=== PATIENT | male | born 1945 | race Caucasian/White ===

== ENCOUNTER 2017-03-28 11:50 | Day surgery (SDC) | payer MEDICARE, OTHER ==
[2017-03-28] VITALS (11 sets, daily range): BP systolic 133–180; BP diastolic 66–90; PULSE 60–87; TEMP 97.1–97.6
[~2017-03-28] VITALS: Ht 177.8 cm; Wt 99.3 kg
[~2017-03-28 11:50] MED LIST: ALEVE 220MG220 MG PO; ASPIRIN 81M81 MG/TA2 PO; COLACE 100100 MG/CAP PO; FLEXERIL5 MG PO; FLOMAX 0.40.4 MG/CAP PO; LIPITOR20 MG PO; MILLIPRED10 MG/5 ML PO; NORCO 325 MG-51 TAB PO; ORAPRED ODT30 MG PO; PRINIVIL20 MG PO; PYRIDIUM 100MG100 MG PO; PYRIDIUM200 M1 PO; TOPROL XL100 MG PO; VICODIN 5/5001 UDTAB PO; VIGAMOX 0.5% 3 M3 ML OP; ZESTRIL 20MG TA20 MG PO
[2017-03-28] MEDS ORDERED: TOPROL XL100 MG PO (12:40)
[2017-03-28] MEDS ORDERED: SYNTHROID0.075 MG/T PO (12:41)
[2017-03-28] MEDS ORDERED: FLEXERIL 1010 MG/TAB PO (12:42)
[2017-03-29 01:23] VITALS: BP 139/63; PULSE 87; TEMP 98.2
[2017-03-29 05:03] VITALS: BP 123/60; PULSE 75; TEMP 97.5
[2017-03-29 09:33] VITALS: BP 141/76; PULSE 58; TEMP 98.5
[2017-03-29 14:14] VITALS: BP 139/78; PULSE 72; TEMP 98.3
== END 2017-03-29 16:27 | disposition home or self-care (01) ==
LOC: SDCO 11:50 → SURG 16:05 → SDCO 03-29 16:27
DX: C66.1 Malignant neoplasm of right ureter (principal); Z85.51 Personal history of malignant neoplasm of bladder; I10 Essential (primary) hypertension; Z86.010 Personal history of colon polyps; F17.200 Nicotine dependence, unspecified, uncomplicated; Z79.82 Long term (current) use of aspirin; Z79.899 Other long term (current) drug therapy
CPT/HCPCS: OP; A9284; C1769; C1894; C2617; J0690; J1100; J2405; J2704; J3010; J7030; J7040; Q9967

== ENCOUNTER → 2017-04-12 | Outpatient (CLI) | payer MEDICARE, OTHER ==
[~2017-04-12] MED LIST changes: +COMPAZINE 110 MG/TAB PO; +FLEXERIL 1010 MG/TAB PO; +LASIX 40MG TABL40 MG PO; +NEXIUM24HROTC PO; +ROXICODONE 55 MG/TAB PO; +SYNTHROID0.075 MG/T PO
== END ==
LOC: COL.RAD 11:59
DX: N28.89 Other specified disorders of kidney and ureter (principal); Z85.51 Personal history of malignant neoplasm of bladder
CPT/HCPCS: A9562

== ENCOUNTER → 2017-04-19 | Outpatient (CLI) | payer MEDICARE, OTHER | LOC: COL.RAD 09:01 | DX: C66.1 Malignant neoplasm of right ureter (principal) ==

== ENCOUNTER 2017-08-13 05:44 | Day surgery (SDC) | payer MEDICARE, OTHER ==
[~2017-08-13] VITALS: Ht 177.8 cm; Wt 95.6 kg
[~2017-08-13 05:44] MED LIST changes: -COMPAZINE 110 MG/TAB PO; -LASIX 40MG TABL40 MG PO; -NEXIUM24HROTC PO; -ROXICODONE 55 MG/TAB PO
[2017-08-13 06:19] VITALS: BP 133/76; PULSE 80; TEMP 97.7
[2017-08-13] MEDS ORDERED: COMPAZINE 110 MG/TAB PO (06:30)
[2017-08-13] MEDS ORDERED: LASIX 40MG TABL40 MG PO (06:33)
[2017-08-13] MEDS ORDERED: ROXICODONE 55 MG/TAB PO (06:33)
[2017-08-13] MEDS ORDERED: NEXIUM24HROTC PO (06:34)
[2017-08-13 08:20] VITALS: BP 130/70; PULSE 75; TEMP 97.5
[2017-08-13 08:40] VITALS: BP 133/80; PULSE 75
[2017-08-13 08:55] VITALS: BP 137/74; PULSE 70
[2017-08-13 10:00] VITALS: BP 145/73; PULSE 66
== END 2017-08-13 10:30 | disposition home or self-care (01) ==
LOC: SDCO 05:44
DX: C66.1 Malignant neoplasm of right ureter (principal); D09.0 Carcinoma in situ of bladder
CPT/HCPCS: J0690; J1100; J2405; J2704; J3010; J7120; Q9967

== ENCOUNTER 2017-08-20 08:32 | Inpatient (IN) | payer MEDICARE, OTHER ==
[~2017-08-20] VITALS: Ht 180.3 cm; Wt 95.6 kg
[~2017-08-20 08:32] MED LIST changes: +COMPAZINE 110 MG/TAB PO; +LASIX 40MG TABL40 MG PO; +NEXIUM24HROTC PO; +ROXICODONE 55 MG/TAB PO
[2017-08-27] VITALS (12 sets, daily range): BP systolic 100–136; BP diastolic 53–73; PULSE 66–99; TEMP 97.5–100
[2017-08-27] MEDS ORDERED: PYRIDIUM200 M1 PO (05:53)
[2017-08-27 06:08] LABS: MEAN CELL VOLUME 97 fl (80.0-100.0); MEAN CORPUSCULAR HGB CONC 32 g/dl (33.0-37.0); MEAN PLATELET VOLUME 9.7 fl (7.4-10.4); PLATELET COUNT 69 K/mm3 (130-400); RED BLOOD COUNT 3.42 M/mm3 (4.20-5.60); REDCELL DISTRIBUTION WIDTH-CV 13.8 % (11.5-14.5); WHITE BLOOD COUNT 10.3 K/mm3 (4.8-10.8)
[2017-08-27 06:09] LABS: HEMATOCRIT 33.3 % (42.0-52.0); HEMOGLOBIN 10.7 g/dl (13.5-18.0); MEAN CORPUSCULAR HEMOGLOBIN 31 pg (27.0-31.0)
[2017-08-27 06:19] LABS: CALCIUM 9.1 mg/dL (8.4-10.2); CREATININE, serum 2.14 mg/dL (0.66-1.25); POTASSIUM 4.3 mmol/L (3.4-5.0)
[2017-08-27 14:10] LABS: CALCIUM 7.9 mg/dL (8.4-10.2); CREATININE, serum 2.17 mg/dL (0.66-1.25); HEMATOCRIT 25.6 % (42.0-52.0); HEMOGLOBIN 8.3 g/dl (13.5-18.0); POTASSIUM 5.3 mmol/L (3.4-5.0)
[2017-08-28] VITALS (10 sets, daily range): BP systolic 105–135; BP diastolic 54–73; PULSE 87–103; TEMP 98.2–99.8
[2017-08-28 07:12] LABS: BASO % 0.1 % (0.0-2.0); EOS # 0.3 (0.0-0.7); EOS % 2.5 % (0-4.0); GRAN # 10.2 (1.4-6.5); GRAN % 86.5 % (42.2-75.2); LYMPH # 0.6 (1.2-3.4); LYMPH % 5.4 % (20.0-51.0); MEAN CELL VOLUME 99 fl (80.0-100.0); MEAN CORPUSCULAR HGB CONC 31 g/dl (33.0-37.0); MEAN PLATELET VOLUME 10.2 fl (7.4-10.4); MONO # 0.6 (0.1-0.6); MONO % 4.8 % (1.7-9.3); PLATELET COUNT 57 K/mm3 (130-400); RED BLOOD COUNT 2.65 M/mm3 (4.20-5.60); REDCELL DISTRIBUTION WIDTH-CV 13.8 % (11.5-14.5); WHITE BLOOD COUNT 11.7 K/mm3 (4.8-10.8)
[2017-08-28 07:23] LABS: CALCIUM 7.9 mg/dL (8.4-10.2); CREATININE, serum 2.22 mg/dL (0.66-1.25); HEMATOCRIT 26.2 % (42.0-52.0); HEMOGLOBIN 8.2 g/dl (13.5-18.0); MEAN CORPUSCULAR HEMOGLOBIN 31 pg (27.0-31.0); POTASSIUM 4.6 mmol/L (3.4-5.0)
[2017-08-29] VITALS (10 sets, daily range): BP systolic 103–138; BP diastolic 41–81; PULSE 78–94; TEMP 97.5–99.8
[2017-08-29 07:50] LABS: CALCIUM 8.1 mg/dL (8.4-10.2); CREATININE, serum 2.02 mg/dL (0.66-1.25)
[2017-08-29 08:08] LABS: BASO % 0.1 % (0.0-2.0); EOS # 0.4 (0.0-0.7); EOS % 3.6 % (0-4.0); GRAN % 84.1 % (42.2-75.2); LYMPH # 0.7 (1.2-3.4); LYMPH % 6.2 % (20.0-51.0); MEAN CELL VOLUME 96 fl (80.0-100.0); MEAN CORPUSCULAR HGB CONC 33 g/dl (33.0-37.0); MEAN PLATELET VOLUME 10.9 fl (7.4-10.4); MONO # 0.6 (0.1-0.6); MONO % 5.4 % (1.7-9.3); PLATELET COUNT 55 K/mm3 (130-400); RED BLOOD COUNT 3.08 M/mm3 (4.20-5.60); REDCELL DISTRIBUTION WIDTH-CV 14.5 % (11.5-14.5); WHITE BLOOD COUNT 11.8 K/mm3 (4.8-10.8)
[2017-08-29 08:09] LABS: HEMATOCRIT 29.5 % (42.0-52.0); HEMOGLOBIN 9.7 g/dl (13.5-18.0); MEAN CORPUSCULAR HEMOGLOBIN 31 pg (27.0-31.0)
[2017-08-30 05:55] VITALS: BP 139/79; PULSE 93; TEMP 98.2
[2017-08-30 06:37] LABS: MEAN CELL VOLUME 97 fl (80.0-100.0); MEAN CORPUSCULAR HGB CONC 32 g/dl (33.0-37.0); MEAN PLATELET VOLUME 10.8 fl (7.4-10.4); RED BLOOD COUNT 3.04 M/mm3 (4.20-5.60); REDCELL DISTRIBUTION WIDTH-CV 14.2 % (11.5-14.5)
[2017-08-30 06:56] LABS: HEMATOCRIT 29.5 % (42.0-52.0); HEMOGLOBIN 9.5 g/dl (13.5-18.0); MEAN CORPUSCULAR HEMOGLOBIN 31 pg (27.0-31.0)
[2017-08-30 06:57] LABS: PLATELET COUNT 43 K/mm3 (130-400)
[2017-08-30 09:53] VITALS: BP 90/48; PULSE 84; TEMP 97.9
[2017-08-30 10:49] VITALS: BP 119/89
[2017-08-30 13:06] VITALS: BP 111/54; PULSE 78; TEMP 98.2
[2017-08-30 17:37] VITALS: BP 110/58; PULSE 81; TEMP 98
[2017-08-30 22:14] VITALS: BP 114/62; PULSE 75; TEMP 98.2
[2017-08-31 02:12] VITALS: BP 117/57; PULSE 80; TEMP 98.2
[2017-08-31 05:33] VITALS: BP 126/57; PULSE 68; TEMP 97.9
[2017-08-31 06:55] LABS: BASO % 0.3 % (0.0-2.0); EOS # 0.4 (0.0-0.7); EOS % 5.6 % (0-4.0); GRAN # 5.1 (1.4-6.5); GRAN % 70.7 % (42.2-75.2); LYMPH # 1.3 (1.2-3.4); LYMPH % 17.2 % (20.0-51.0); MEAN CELL VOLUME 97 fl (80.0-100.0); MEAN CORPUSCULAR HGB CONC 32 g/dl (33.0-37.0); MEAN PLATELET VOLUME 10.5 fl (7.4-10.4); MONO # 0.4 (0.1-0.6); MONO % 5.6 % (1.7-9.3); PLATELET COUNT 59 K/mm3 (130-400); RED BLOOD COUNT 2.95 M/mm3 (4.20-5.60); REDCELL DISTRIBUTION WIDTH-CV 13.6 % (11.5-14.5); WHITE BLOOD COUNT 7.3 K/mm3 (4.8-10.8)
[2017-08-31 06:57] LABS: HEMATOCRIT 28.5 % (42.0-52.0); HEMOGLOBIN 9.2 g/dl (13.5-18.0); MEAN CORPUSCULAR HEMOGLOBIN 31 pg (27.0-31.0)
[2017-08-31 07:07] LABS: CALCIUM 8.3 mg/dL (8.4-10.2); CREATININE, serum 2.07 mg/dL (0.66-1.25); POTASSIUM 3.8 mmol/L (3.4-5.0)
[2017-08-31 09:58] VITALS: BP 110/51; PULSE 84; TEMP 98.3
[2017-08-31 13:53] VITALS: BP 105/62; PULSE 78; TEMP 98.3
[2017-08-31 16:44] VITALS: BP 120/90; PULSE 78; TEMP 98.9
[2017-08-31] MEDS ORDERED: PRINIVIL10 MG PO (16:53)
[2017-08-31] MEDS ORDERED: VESICARE 5MG5 MG PO (17:01)
[2017-08-31] MEDS ORDERED: COLACE 100100 MG/CAP PO (17:13)
[2017-08-31] MEDS ORDERED: PERCOCET 325 MG1 TA2 PO (17:14)
[2017-08-31] MEDS ORDERED: LIPITOR20 MG PO (17:19)
== END 2017-08-31 17:30 | disposition home or self-care (01) | DRG 657 ==
LOC: SURG 08-27 05:31 → INPTSU 08-27 05:31 → SURG 08-27 07:30
PROVIDERS: Internal Medicine Cardiovascular Disease; Nurse Anesthetist, Certified Registered; Nurse Practitioner Family; Physician Assistant; Urology
PROC: 0TB60ZZ Excision of Right Ureter, Open Approach (ICD-10-PCS; principal; 2017-08-27 07:30)
PROC: 0T160ZB Bypass Right Ureter to Bladder, Open Approach (ICD-10-PCS; 2017-08-27 07:30)
DX: C66.1 Malignant neoplasm of right ureter (principal); D62 Acute posthemorrhagic anemia; I12.9 Hypertensive chronic kidney disease with stage 1 through stage 4 chronic kidney disease, or unspecified chronic kidney disease; N18.9 Chronic kidney disease, unspecified; F17.210 Nicotine dependence, cigarettes, uncomplicated; Z85.51 Personal history of malignant neoplasm of bladder; D69.59 Other secondary thrombocytopenia; E87.5 Hyperkalemia
CPT/HCPCS: 99222; 99232-AI; 99233-AI; A9284; C1769; C2617; J0690; J2405; J2704; J2765; J3010; J7030; J7120; P9016

== ENCOUNTER → 2019-09-24 | Outpatient (CLI) | payer MEDICARE, OTHER ==
[~2019-09-24] MED LIST changes: +CIPRO750 MG PO; +MEGESTROL; +PACERONE400 MG PO; +PERCOCET 325 MG1 TA2 PO; +PRINIVIL10 MG PO; +SODIUM BICARBO650 MG PO; +TOPROL XL 25MG25 MG PO; +VESICARE 5MG5 MG PO; +ZANTAC 150MG T150 MG PO
== END ==
LOC: COL.VAS 09:08
DX: N18.4 Chronic kidney disease, stage 4 (severe) (principal)
CPT/HCPCS: G0365

== ENCOUNTER 2019-09-29 12:06 | Day surgery (SDC) | payer MEDICARE, OTHER ==
[~2019-09-29] VITALS: Ht 180.3 cm; Wt 89.0 kg
[2019-09-29] VITALS (10 sets, daily range): BP systolic 137–168; BP diastolic 54–81; PULSE 58–78; TEMP 97.3–97.5
[2019-09-29] MEDS ORDERED: CORDARONE200 MG/TAB PO (12:42)
[2019-09-29] MEDS ORDERED: COZAAR 25MG25 MG/TAB PO (12:43)
[2019-09-29] MEDS ORDERED: SYNTHROID 0.10.15 MG PO (12:44)
[2019-09-29] MEDS ORDERED: TOPROL XL 25MG25 MG PO (12:45)
[2019-09-29] MEDS ORDERED: ZANTAC 150MG T150 MG PO (12:49)
[2019-09-29] MEDS ORDERED: VITAMIN D32000 IU PO (12:50)
[2019-09-29] MEDS ORDERED: TYLENOL 500MG500 MG PO (12:51)
[2019-09-29 13:08] LABS: HEMATOCRIT 37.5 % (42.0-52.0); HEMOGLOBIN 11.7 g/dl (13.5-18.0); MEAN CELL VOLUME 93 fl (80.0-100.0); MEAN CORPUSCULAR HEMOGLOBIN 29 pg (27.0-31.0); MEAN CORPUSCULAR HGB CONC 31 g/dl (33.0-37.0); MEAN PLATELET VOLUME 10.6 fl (7.4-10.4); PLATELET COUNT 71 K/mm3 (130-400); RED BLOOD COUNT 4.02 M/mm3 (4.20-5.60); REDCELL DISTRIBUTION WIDTH-CV 14.1 % (11.5-14.5)
[2019-09-29 13:21] LABS: CALCIUM 9.2 mg/dL (8.4-10.2); CREATININE, serum 3.77 (0.66-1.25); POTASSIUM 5.4 mmol/L (3.4-5.0)
--- NOTE | 2019-09-29 15:50 | NUR ---
Patient up from OR by bed. Spouse at bedside. Alert and oriented x3. Hernandez to dependent drainage. Post op VSS. Post op fluids infusing per orders to right hand. Denies further needs at this time. Will continue to monitor. Oncology nurse here for mitomycin.
--- NOTE | 2019-09-29 16:31 | NUR ---
Pt given printed instructions for mitomycin care post discharge. Bedside instructions reviewed with pt and . Consent has been signed for instillation. Appropriate signage has been placed at door and PPE was donned prior to initiating instillation. Drug and dose was verified with Patrick Gu RN at bedside. Bladder was drained and clamped with initially tape and then with delon clamp as some leakage was noted in tamayo tubing. Guero Briseno RN will release mitomycin and remove catheter at the end of two hours or when pt can no longer tolerate. She was given report as well as his primary nurse Mattie STEINER. Pt has chux underneath his buttocks, is aware to notify nurses if bladder distention becomes unbearable, and has been instructed to double flush the toilet after covering with chux with each void here and at home for next 24 hours.
--- NOTE | 2019-09-29 19:15 | NUR ---
Patient has done well since arrival from ER. Post op VSS. Currently sitting up on edge of bed attempting to increase fluids per patient so he can void. Reported off to mine shifter.
--- NOTE | 2019-09-29 20:30 | NUR ---
Patient has been drinking water, coffee and juice, voids only 25cc at this time. Encouraged ambulation and more water intake before sending home.
--- NOTE | 2019-09-29 21:30 | NUR ---
Patient has voided 100cc of bloody urine with clot noted. Encouraged to drink more fluids and void another time before discharging.
--- NOTE | 2019-09-29 21:55 | NUR ---
Patient voids 200cc of bloody urine. Discharge instructions reviewed with patient and spouse. DC'd IV site to left hand, angiocath intact.
--- NOTE | 2019-09-29 22:00 | NUR ---
Taken via w/c to private car for discharge. Copy of discharge instructions sent with patient as well as discharge instructions.
== END 2019-09-29 22:00 | disposition home or self-care (01) ==
LOC: SDCO 12:06 → SURG 15:56 → SDCO 22:00
PROVIDERS: Nurse Anesthetist, Certified Registered
DX: C67.9 Malignant neoplasm of bladder, unspecified (principal); I10 Essential (primary) hypertension; F17.210 Nicotine dependence, cigarettes, uncomplicated; D63.1 Anemia in chronic kidney disease; I12.9 Hypertensive chronic kidney disease with stage 1 through stage 4 chronic kidney disease, or unspecified chronic kidney disease; N18.4 Chronic kidney disease, stage 4 (severe); M19.90 Unspecified osteoarthritis, unspecified site; F32.9 Major depressive disorder, single episode, unspecified; Z92.3 Personal history of irradiation; Z79.82 Long term (current) use of aspirin
CPT/HCPCS: OP; C1769; J0690; J1100; J2405; J2704; J3010; J7030; J9280

== ENCOUNTER 2020-01-12 10:06 | Day surgery (SDC) | payer MEDICARE, OTHER ==
[~2020-01-12] VITALS: Ht 180.3 cm; Wt 87.5 kg
[~2020-01-12 10:06] MED LIST changes: +CORDARONE200 MG/TAB PO; +COZAAR 25MG25 MG/TAB PO; +PEPCID AC20 MG PO; +SYNTHROID 0.10.15 MG PO; +TYLENOL 500MG500 MG PO; +VITAMIN D32000 IU PO
[2020-01-12 11:15] VITALS: BP 154/76; PULSE 64; TEMP 97.1
[2020-01-12 11:19] LABS: BASO # 0.1 (0.0-0.2); BASO % 1.3 % (0.0-2.0); EOS # 0.3 (0.0-0.7); EOS % 3.8 % (0-4.0); GRAN # 4.7 (1.4-6.5); GRAN % 61.3 % (42.2-75.2); LYMPH % 26.1 % (20.0-51.0); MEAN CELL VOLUME 92 fl (80.0-100.0); MEAN CORPUSCULAR HEMOGLOBIN 28 pg (27.0-31.0); MEAN CORPUSCULAR HGB CONC 31 g/dl (33.0-37.0); MEAN PLATELET VOLUME 10.6 fl (7.4-10.4); MONO # 0.5 (0.1-0.6); PLATELET COUNT 80 K/mm3 (130-400); RED BLOOD COUNT 3.87 M/mm3 (4.20-5.60); REDCELL DISTRIBUTION WIDTH-CV 13.8 % (11.5-14.5)
[2020-01-12 11:23] LABS: HEMATOCRIT 35.4 % (42.0-52.0)
[2020-01-12 11:34] LABS: CALCIUM 9.1 mg/dL (8.4-10.2); CREATININE, serum 4.33 (0.66-1.25); POTASSIUM 5.2 mmol/L (3.4-5.0)
[2020-01-12 16:00] VITALS: BP 141/65; PULSE 51; TEMP 98
--- NOTE | 2020-01-12 16:00 | NUR ---
Patient arrives back to [facility] alert, denies pain or nausea. Patient monitor applied, vitals stable. Incision on left wrist clean/dry/intact with good flow/bruit ascultated. Patient given juice and muffin. Patient's at bedside.
--- NOTE | 2020-01-12 16:10 | NUR ---
Patient up to restroom at this time and is able to urinate without any difficulties. Patient reports minimal blood in urine, denies clots.
[2020-01-12 16:15] VITALS: BP 146/63; PULSE 55
[2020-01-12] MEDS ORDERED: PYRIDIUM 100MG100 MG PO (16:25)
[2020-01-12] MEDS ORDERED: NORCO 325 MG-51 TAB PO (16:25)
[2020-01-12 16:30] VITALS: BP 139/57; PULSE 63
--- NOTE | 2020-01-12 16:30 | NUR ---
Patient dressed and reports that he is ready to go at this time.
--- NOTE | 2020-01-12 16:40 | NUR ---
Dismissal instructions gone over with patient and patient's spouse. Both verbalize understanding and all questions answered.
--- NOTE | 2020-01-12 16:45 | NUR ---
Patient discharged to private vehicle that patient's spouse is driving via wheelchair and without any complications. Patient and spouse leave thanking staff for services.
[2020-01-12 19:02] VITALS: BP 135/70; PULSE 51; TEMP 97.6
== END 2020-01-12 16:45 | disposition home or self-care (01) ==
LOC: SDCO 10:06
PROVIDERS: Surgery
DX: C65.1 Malignant neoplasm of right renal pelvis (principal); C67.0 Malignant neoplasm of trigone of bladder; N13.30 Unspecified hydronephrosis; I12.9 Hypertensive chronic kidney disease with stage 1 through stage 4 chronic kidney disease, or unspecified chronic kidney disease; N18.4 Chronic kidney disease, stage 4 (severe); C67.9 Malignant neoplasm of bladder, unspecified; D69.6 Thrombocytopenia, unspecified; Z79.899 Other long term (current) drug therapy; F17.210 Nicotine dependence, cigarettes, uncomplicated; Z88.8 Allergy status to other drugs, medicaments and biological substances; I10 Essential (primary) hypertension; F32.9 Major depressive disorder, single episode, unspecified; Z79.82 Long term (current) use of aspirin; E03.9 Hypothyroidism, unspecified
CPT/HCPCS: C1769; J0690; J1644; J2405; J2704; J3010; J7030; Q9967

== ENCOUNTER 2020-01-28 08:14 | Inpatient (IN) | payer MEDICARE, OTHER ==
[~2020-01-28] VITALS: Ht 177.8 cm; Wt 88.2 kg
[2020-04-19 06:22] VITALS: BP 171/64; PULSE 70; TEMP 97.1
[2020-04-19 06:24] VITALS: BP 171/64; PULSE 70; TEMP 97.1
[2020-04-19 06:57] LABS: BASO % 0.4 % (0.0-2.0); EOS # 0.4 (0.0-0.7); GRAN # 7.6 (1.4-6.5); GRAN % 68.3 % (42.2-75.2); HEMOGLOBIN 11.1 g/dl (13.5-18.0); LYMPH # 2.1 (1.2-3.4); MEAN CELL VOLUME 92 fl (80.0-100.0); MEAN CORPUSCULAR HEMOGLOBIN 29 pg (27.0-31.0); MEAN CORPUSCULAR HGB CONC 32 g/dl (33.0-37.0); MONO # 0.8 (0.1-0.6); PLATELET COUNT 63 K/mm3 (130-400); RED BLOOD COUNT 3.83 M/mm3 (4.20-5.60)
[2020-04-19 07:03] LABS: HEMATOCRIT 35.1 % (42.0-52.0)
[2020-04-19 07:06] LABS: CALCIUM 8.5 mg/dL (8.4-10.2); CREATININE, serum 3.75 (0.66-1.25); POTASSIUM 4.9 mmol/L (3.4-5.0)
[2020-04-19] MEDS ORDERED: PACERONE400 MG PO (07:14)
[2020-04-19] MEDS ORDERED: LIPITOR20 MG PO (07:17)
--- NOTE | 2020-04-19 07:25 | NUR ---
Dr. Campbell here to talk with the patient and surgery cancelled due to low platelet count. Patient voices understanding of this. IV discontinued and patient contacted spouse for ride home.
[2020-04-19] MEDS ORDERED: ZIKS HEMATOGEN1 SG1 PO (07:28)
[2020-04-19] MEDS ORDERED: TIROSINT75 MC1 PO (07:29)
[2020-04-19] MEDS ORDERED: TOPROL XL 25MG25 MG PO (07:30)
[2020-04-19] MEDS ORDERED: PEPCID 20MG TAB20 MG PO (07:30)
[2020-04-19] MEDS ORDERED: MASON NATURAL2000 IU PO (07:31)
[2020-04-19] MEDS ORDERED: COLACE 100100 MG/CAP PO (07:31)
[2020-04-19] MEDS ORDERED: FLOMAX 0.40.4 MG/CAP PO (07:31)
[2020-04-19] MEDS ORDERED: COZAAR 25MG25 MG/TAB PO (07:33)
--- NOTE | 2020-04-19 07:47 | NUR ---
Patient escorted to the front lobby and awaits ride home.
== END 2020-04-19 07:48 | disposition home or self-care (01) | DRG 683 ==
LOC: SURG 03-01 08:00 → INPTSU 04-19 05:54 → SURG 04-19 07:30 → INPTSU 04-19 07:48 → SURG 04-19 08:00
PROVIDERS: Registered Nurse; ADMIT Urology
DX: I12.0 Hypertensive chronic kidney disease with stage 5 chronic kidney disease or end stage renal disease (principal); N18.5 Chronic kidney disease, stage 5; C66.1 Malignant neoplasm of right ureter; D69.6 Thrombocytopenia, unspecified; Z49.01 Encounter for fitting and adjustment of extracorporeal dialysis catheter; F17.210 Nicotine dependence, cigarettes, uncomplicated; Z85.51 Personal history of malignant neoplasm of bladder; Z53.09 Procedure and treatment not carried out because of other contraindication
CPT/HCPCS: OP; J0690; J1100; J1885; J2250; J2405; J2704; J2795; J7030

== ENCOUNTER 2020-04-19 09:10 | Inpatient (IN) | payer MEDICARE, OTHER ==
[~2020-04-19] VITALS: Ht 180.3 cm; Wt 87.0 kg
[~2020-04-19 09:10] MED LIST changes: +MASON NATURAL2000 IU PO; +PEPCID 20MG TAB20 MG PO; +TIROSINT75 MC1 PO; +ZIKS HEMATOGEN1 SG1 PO
[2020-05-02 13:34] VITALS: BP 137/61; PULSE 80; TEMP 97.8
--- NOTE | 2020-05-02 13:36 | NUR ---
Notified Dr. Campbell of patient arrival to room 323. Orders entered.
[2020-05-02 14:00] VITALS: BP 144/69; PULSE 63; TEMP 98.1
--- NOTE | 2020-05-02 14:00 | NUR ---
Initial and 5 page complete. Patient and spouse oriented to room. Denies further needs at this time.
[2020-05-02 14:54] LABS: CALCIUM 8.6 mg/dL (8.4-10.2); CREATININE, serum 4.22 (0.66-1.25)
[2020-05-02 14:59] LABS: HEMOGLOBIN 10.8 g/dl (13.5-18.0); MEAN CELL VOLUME 91 fl (80.0-100.0); MEAN CORPUSCULAR HEMOGLOBIN 29 pg (27.0-31.0); MEAN CORPUSCULAR HGB CONC 31 g/dl (33.0-37.0); MEAN PLATELET VOLUME 10.9 fl (7.4-10.4); PLATELET COUNT 95 K/mm3 (130-400); RED BLOOD COUNT 3.78 M/mm3 (4.20-5.60); REDCELL DISTRIBUTION WIDTH-CV 14.2 % (11.5-14.5)
--- NOTE | 2020-05-02 15:00 | NUR ---
Contacted Dr. Campbell, diet ordered on patient will be NPO after midnight for procedure in AM
[2020-05-02 15:07] LABS: HEMATOCRIT 34.4 % (42.0-52.0)
--- NOTE | 2020-05-02 19:00 | NUR ---
Patient has done well throughout the day. Minimal needs. Denies pain at this time. Denies further needs at this time. Will report off to transit mix operator.
[2020-05-02 19:49] VITALS: BP 153/62; PULSE 61; TEMP 97.7
--- NOTE | 2020-05-02 20:00 | NUR ---
Report received, assumed care for slot shift supervisor. A&Ox3. Assessment complete. Denies pain/nausea/shortness of breath. VS stable. Plan of care discussed for NPO at midnight in prep for surgery. Verbalizes understanding. IV started in right [id number] attempt. Denies needs. Call light in reach. Will monitor.
--- NOTE | 2020-05-02 22:15 | NUR ---
C/O "stress headache." New orders received for tylenol 650mg PO. Given now. Also given Restoril 15mg per new dr order. Will monitor.
[2020-05-02 23:53] VITALS: BP 151/64; PULSE 64; TEMP 97.5
[2020-05-03] VITALS (9 sets, daily range): BP systolic 124–158; BP diastolic 47–76; PULSE 57–85; TEMP 97.7–98.4
--- NOTE | 2020-05-03 05:30 | NUR ---
Rested off and on this shift. Did complain of some neck pain-states he has periodic neck pain at home and was told to drink caffeine. Applied heat pack which did make it better. Preop meds given. Consents signed and on front of chart. Denies questions/concerns. Call light in reach. Will monitor.
--- NOTE | 2020-05-03 06:30 | NUR ---
To OR via Bed.
--- NOTE | 2020-05-03 06:51 | NUR ---
Report given to JATIN Corrigan
--- NOTE | 2020-05-03 07:34 | NUR ---
Patient was taken down to OR at 0700, His showed up and I showed her to the waiting are and notified
[2020-05-03 12:32] LABS: BASO % 0.4 % (0.0-2.0); EOS % 0.4 % (0-4.0); GRAN # 9.3 (1.4-6.5); GRAN % 86.9 % (42.2-75.2); HEMOGLOBIN 10.4 g/dl (13.5-18.0); LYMPH # 0.7 (1.2-3.4); LYMPH % 6.3 % (20.0-51.0); MEAN CELL VOLUME 93 fl (80.0-100.0); MEAN CORPUSCULAR HEMOGLOBIN 29 pg (27.0-31.0); MEAN CORPUSCULAR HGB CONC 31 g/dl (33.0-37.0); MEAN PLATELET VOLUME 10.9 fl (7.4-10.4); MONO # 0.6 (0.1-0.6); MONO % 5.6 % (1.7-9.3); PLATELET COUNT 94 K/mm3 (130-400); RED BLOOD COUNT 3.59 M/mm3 (4.20-5.60)
[2020-05-03 12:42] LABS: CALCIUM 8.3 mg/dL (8.4-10.2); CREATININE, serum 4.14 (0.66-1.25); POTASSIUM 5.7 mmol/L (3.4-5.0)
--- NOTE | 2020-05-03 13:09 | NUR ---
Patient doing well post-op, having some moderate discomfort but stated is tolerable for now, vital signs stable, 100 cc bloody output from CARLOS A drain, dressing C/D/I, tolerating PO intake of fluids well, at bedside, will continue to monitor
[2020-05-03 13:21] LABS: HEMATOCRIT 33.4 % (42.0-52.0)
--- NOTE | 2020-05-03 15:35 | NUR ---
Assistant Womens Volleyball Coach met with patient and patient's Elaine (ph#[phone]) to discuss discharge planning. Patient lives in [place] and sees Dr. Siu for primary care. Patient obtains medications from [facility] in [place] with no difficulties. Patient does not use any DME and reports independence with ADLS. Patient reports he has DPOA-HC set up although SW did not locate any Advance Directives in the EMR. Patient states he has designated Elaine then his two children, Zack and Mackenzie. Patient plans to return home upon discharge. SW to continue to follow.
--- NOTE | 2020-05-03 19:55 | NUR ---
Called Dr. Campbell regarding output from patients CARLOS A ryanne. Patient has had approximately 100mL every [address] Campbell requested this nurse to call Dr. Best to request DDAVP for patient. Dr. Best called after call, new order for desmopressin 0.3mcg/Kg times one.
--- NOTE | 2020-05-03 22:50 | NUR ---
Patient called out that he needed to have a bowel movement. Patient requested to walk to the restroom. Patient stated he felt light headed and was unable to stand without assistance. Patient was able to be seated on the commode. Patient sustained a skin tear on bilateral forearms. Vitals obtained blood pressure was 75/47. Patient began to feel better, recliner was brought to bathroom door, to assist getting patient to bed witout further incident. Patient vitals continued to be monitored at 2330 blood pressure remained low at 84/42. Dr Best called see new order to hold all blood pressure medications and the gabapentin, get a STAT CBC call with results. After lab draw run a 250 mL normal saline bolus over 2 hours.
[2020-05-04] VITALS (7 sets, daily range): BP systolic 92–127; BP diastolic 43–58; PULSE 71–94; TEMP 97.6–98.4
[2020-05-04 00:08] LABS: BASO % 0.3 % (0.0-2.0); EOS # 0.2 (0.0-0.7); EOS % 2.2 % (0-4.0); GRAN # 9.6 (1.4-6.5); GRAN % 86.6 % (42.2-75.2); LYMPH # 0.6 (1.2-3.4); LYMPH % 5.5 % (20.0-51.0); MEAN CELL VOLUME 94 fl (80.0-100.0); MEAN CORPUSCULAR HGB CONC 31 g/dl (33.0-37.0); MEAN PLATELET VOLUME 11.2 fl (7.4-10.4); MONO # 0.5 (0.1-0.6); MONO % 4.9 % (1.7-9.3); PLATELET COUNT 105 K/mm3 (130-400); RED BLOOD COUNT 3.44 M/mm3 (4.20-5.60); REDCELL DISTRIBUTION WIDTH-CV 14.3 % (11.5-14.5)
[2020-05-04 00:10] LABS: HEMATOCRIT 32.4 % (42.0-52.0); HEMOGLOBIN 9.9 g/dl (13.5-18.0); MEAN CORPUSCULAR HEMOGLOBIN 29 pg (27.0-31.0)
--- NOTE | 2020-05-04 03:55 | NUR ---
After bolus given patient blood pressure much improved 126/58, patient is able to be more awake and is no longer pale. Out put from the CARLOS A has slowed down. Dressing over drain site and incision are clean, intact, with old drainage on them. No change in the dressing on the right chest over the dialysis catheter.
[2020-05-04 07:02] LABS: BASO % 0.3 % (0.0-2.0); EOS # 0.3 (0.0-0.7); EOS % 2.6 % (0-4.0); GRAN # 8.6 (1.4-6.5); GRAN % 84.8 % (42.2-75.2); LYMPH # 0.7 (1.2-3.4); LYMPH % 7.2 % (20.0-51.0); MEAN CELL VOLUME 95 fl (80.0-100.0); MEAN CORPUSCULAR HGB CONC 30 g/dl (33.0-37.0); MEAN PLATELET VOLUME 11.2 fl (7.4-10.4); MONO # 0.5 (0.1-0.6); MONO % 4.7 % (1.7-9.3); PLATELET COUNT 114 K/mm3 (130-400); RED BLOOD COUNT 3.39 M/mm3 (4.20-5.60); REDCELL DISTRIBUTION WIDTH-CV 14.4 % (11.5-14.5)
[2020-05-04 07:07] LABS: HEMATOCRIT 32.3 % (42.0-52.0); HEMOGLOBIN 9.7 g/dl (13.5-18.0); MEAN CORPUSCULAR HEMOGLOBIN 29 pg (27.0-31.0)
[2020-05-04 07:28] LABS: CALCIUM 8.5 mg/dL (8.4-10.2); CREATININE, serum 5.67 (0.66-1.25); MAGNESIUM 2.2 mg/dL (1.6-2.3); PHOSPHOROUS 5.8 mg/dL (2.5-4.5)
[2020-05-04 07:33] LABS: POTASSIUM 6.7 mmol/L (3.4-5.0)
--- NOTE | 2020-05-04 08:03 | NUR ---
Patient to dialysis with nurse Zhane to initiated patients first dialysis treatment. She made aware of critical potatssium at 6.7. She will change dialysis treatment acccordingly. Patient transferred well to dialysis chair & wheelchair without any complaints of dizzyness of lightheadedness. Patient requested pain medication prior to dialysis, 2 Mg morphine per orders. Patient pain to his mid abdomen. Patient reports intermittent nausea, but did have some sips of clears this am. Andrade drain output is much improved. Bloody output is noted. ABdominal incisions edges well approximated. He reports passing small amounts of flatus. Hernandez to DD. minimal urine output. Int. Dialysis fistula to LFA, resticted extrimity. Dialysis cath to right chest. Will monitor.
--- NOTE | 2020-05-04 11:58 | NUR ---
First visit from the fish machine feeder. No needs right now.
--- NOTE | 2020-05-04 14:48 | NUR ---
TB Skin test given to patient at this time in right forearm. TB solution is from [employer]; Lot # [id number]; EXP 08/14. Patient tolerted well
--- NOTE | 2020-05-04 17:20 | NUR ---
Patient continues to sit up in chair. He is more comfortable in chair. He rested most of the afternoon. His was at bedside. Patient CARLOS A drain removed per orders. He tolerated well. abdominal incisions now all open to air, edges all well approximated. abdomen remains soft. We reviewed renal diet & taking it very slow. Patient pain increased, he requested Iv morphine. I reviewed starting PO pain medication other than tylneol. he had no interest at this time. I will encourage activity.
--- NOTE | 2020-05-04 19:22 | NUR ---
Patient had a few bites of dinner, minimal appetite. Patient up and one assist to ambulate the halls. He did have dyspnea with exertion. Report to night guard nurse.
--- NOTE | 2020-05-04 20:00 | NUR ---
Report received, assumed care for shift leader. Sitting up in the chair. A&Ox3. Assessment complete. VS stable. Denies pain/nausea/shortness of breath. Lap sites to abdomen x4-zelaya set-edges well approximated. Midline incision-zelaya set-edges well approximated. +flatus. Right FA INT flushes without difficulty. Right subclavian DC-dressing CDI. Hernandez cath with a small amount of yellow urine. Denies questions/concerns. Call light in reach. Will monitor.
[2020-05-05 00:41] VITALS: BP 124/56; PULSE 80; TEMP 97.2
[2020-05-05 04:44] VITALS: BP 98/42; PULSE 81; TEMP 97.8
--- NOTE | 2020-05-05 05:20 | NUR ---
Rested more later this shift. Has had a productive cough-green thick sputum-scant amount. Denied shortness of breath/nausea. Has not received any pain medications this shift except scheduled tylenol. Very little urine output. Denies needs. Call light in reach. Will monitor.
[2020-05-05 07:32] VITALS: BP 138/58; PULSE 87; TEMP 97.8
--- NOTE | 2020-05-05 07:36 | NUR ---
Assessment completed, alert/oriented, vital signs stable, reports pain is mild and tolerable this morning, abdomen is soft and BS +, incision sites look good/ no redness or drainange/ sutures intact, tamayo patent with small amount of UOP/ clear and yellow, potassium was 4.9 s/p dialysis yesteray with no new labs drawn yet this morning, patient has been up ambulated with PT, will continue to monitor, plans for diaylsis this morning
--- NOTE | 2020-05-05 08:00 | NUR ---
patient going to dialysis at this time
[2020-05-05 09:22] LABS: BASO % 0.3 % (0.0-2.0); EOS # 0.3 (0.0-0.7); EOS % 4.3 % (0-4.0); GRAN # 5.5 (1.4-6.5); GRAN % 83.9 % (42.2-75.2); HEMATOCRIT 24.7 % (42.0-52.0); HEMOGLOBIN 7.8 g/dl (13.5-18.0); LYMPH # 0.4 (1.2-3.4); LYMPH % 6.3 % (20.0-51.0); MEAN CELL VOLUME 92 fl (80.0-100.0); MEAN CORPUSCULAR HEMOGLOBIN 29 pg (27.0-31.0); MEAN CORPUSCULAR HGB CONC 32 g/dl (33.0-37.0); MEAN PLATELET VOLUME 11.3 fl (7.4-10.4); MONO # 0.3 (0.1-0.6); MONO % 4.9 % (1.7-9.3); PLATELET COUNT 97 K/mm3 (130-400); RED BLOOD COUNT 2.69 M/mm3 (4.20-5.60); REDCELL DISTRIBUTION WIDTH-CV 14.4 % (11.5-14.5)
[2020-05-05 10:05] LABS: ALBUMIN 2.9 gm/dL (3.5-5.0); CALCIUM 8.1 mg/dL (8.4-10.2); CREATININE, serum 6.03 (0.66-1.25); PHOSPHOROUS 5.3 mg/dL (2.5-4.5); POTASSIUM 4.2 mmol/L (3.4-5.0)
[2020-05-05 10:59] LABS: HEPATITIS B SURFACE ANTIBODY <2.0 (()); HEPATITIS B SURFACE ANTIGEN Negative (Negative); HEPATITIS C VIRUS ANTIBODY Negative (Negative)
[2020-05-05 12:39] VITALS: BP 114/53; PULSE 94; TEMP 97.7
[2020-05-05 15:58] VITALS: BP 151/57; PULSE 84; TEMP 97.5
[2020-05-05 17:26] LABS: BASO % 0.3 % (0.0-2.0); EOS # 0.3 (0.0-0.7); EOS % 5.5 % (0-4.0); GRAN # 4.5 (1.4-6.5); GRAN % 74.1 % (42.2-75.2); LYMPH # 0.8 (1.2-3.4); LYMPH % 13.1 % (20.0-51.0); MEAN CELL VOLUME 88 fl (80.0-100.0); MEAN CORPUSCULAR HGB CONC 32 g/dl (33.0-37.0); MEAN PLATELET VOLUME 11.4 fl (7.4-10.4); MONO # 0.4 (0.1-0.6); MONO % 6.3 % (1.7-9.3); PLATELET COUNT 94 K/mm3 (130-400); RED BLOOD COUNT 2.84 M/mm3 (4.20-5.60); REDCELL DISTRIBUTION WIDTH-CV 14.2 % (11.5-14.5)
[2020-05-05 17:28] LABS: BILIRUBIN UNCONJUGATED 0.2 mg/dL (0.0-1.1); BILIRUBIN,DIRECT 0.3 mg/dL (0.0-0.4); BILIRUBIN,TOTAL 0.5 mg/dL (0.0-1.0); TOTAL PROTEIN 5.7 gm/dL (6.4-8.2)
[2020-05-05 18:16] LABS: HEMATOCRIT 25.1 % (42.0-52.0); HEMOGLOBIN 8.1 g/dl (13.5-18.0); MEAN CORPUSCULAR HEMOGLOBIN 29 pg (27.0-31.0)
--- NOTE | 2020-05-05 20:00 | NUR ---
Report received, assumed care for mold shifter. Assessment complete. A&Ox3. VS stable. Denies pain/nausea/shortness of breath. Has ambulated in the hallway. INT to right FA flushes without difficulty. 4 lap sites to abdomen-edges well approximated-zelaya set. Midline abdomen-edges well approximated-zelaya set. Hernandez cath with yellow cloudy urine. Denies needs. Call light in reach. Will monitor.
[2020-05-05 20:22] VITALS: BP 123/56; PULSE 92; TEMP 98.2
[2020-05-06 00:39] VITALS: BP 139/59; PULSE 83; TEMP 98
[2020-05-06 04:00] VITALS: BP 138/56; PULSE 68; TEMP 98
--- NOTE | 2020-05-06 05:00 | NUR ---
Rested off and on this shift. Denied nausea/shortness of breath/pain. VS remained stable. Call light in reach. Will monitor.
--- NOTE | 2020-05-06 08:27 | NUR ---
Patient to dialysis with Zhane. & Luis Eduardo Pa have rounded. He did well with breakfast, very aware of his renal diet. He is really wanting to discharge home this afternoon.
[2020-05-06] MEDS ORDERED: PACERONE400 MG PO (09:56)
[2020-05-06] MEDS ORDERED: ROXICODONE 55 MG/TAB PO (09:59)
[2020-05-06 10:02] LABS: BASO % 0.2 % (0.0-2.0); EOS # 0.3 (0.0-0.7); EOS % 5.7 % (0-4.0); GRAN # 3.8 (1.4-6.5); GRAN % 71.6 % (42.2-75.2); LYMPH # 0.9 (1.2-3.4); LYMPH % 16.8 % (20.0-51.0); MEAN CELL VOLUME 90 fl (80.0-100.0); MEAN CORPUSCULAR HGB CONC 32 g/dl (33.0-37.0); MEAN PLATELET VOLUME 11.4 fl (7.4-10.4); MONO # 0.3 (0.1-0.6); MONO % 5.1 % (1.7-9.3); PLATELET COUNT 108 K/mm3 (130-400); RED BLOOD COUNT 2.81 M/mm3 (4.20-5.60); REDCELL DISTRIBUTION WIDTH-CV 14.1 % (11.5-14.5)
[2020-05-06 10:06] LABS: ALBUMIN 2.9 gm/dL (3.5-5.0); CALCIUM 8.2 mg/dL (8.4-10.2); CREATININE, serum 4.93 (0.66-1.25); PHOSPHOROUS 4.1 mg/dL (2.5-4.5); POTASSIUM 3.8 mmol/L (3.4-5.0)
[2020-05-06 10:09] LABS: HEMATOCRIT 25.4 % (42.0-52.0); MEAN CORPUSCULAR HEMOGLOBIN 28 pg (27.0-31.0)
[2020-05-06] MEDS ORDERED: DULCOLAX TAB5 MG PO (11:13)
[2020-05-06] MEDS ORDERED: COLACE 100100 MG/CAP PO (11:14)
[2020-05-06] MEDS ORDERED: LASIX 40MG TABL40 MG PO (11:15)
[2020-05-06 12:57] VITALS: BP 159/67; PULSE 83; TEMP 97.6
--- NOTE | 2020-05-06 13:56 | NUR ---
Right forearm TB skin test, no erythema or induration noted at puncture site. Patient denies known exposure to self or immediate family.
--- NOTE | 2020-05-06 15:00 | NUR ---
Patient ready for discharge. He completed his dialysis session for today. Dr. Best saw him & okayed discharge. We reviewed all discharge instructions- Script for oxicodone sent with patient. Home med list & last dose taken reviewed. Hernandez care given & leg bag teaching completed. Dilaysis cath & signs & symptoms of infection reviewed. incision care dicussed. He understands renal diet. Int Dc. Patient wheeled out with all belongings. His taking him home.
== END 2020-05-06 15:00 | disposition home or self-care (01) | DRG 656 ==
LOC: SURG 05-02 07:30
PROVIDERS: Internal Medicine Nephrology; ADMIT Urology
PROC: 0TT04ZZ Resection of Right Kidney, Percutaneous Endoscopic Approach (ICD-10-PCS; principal; 2020-05-02)
PROC: 0TB64ZZ Excision of Right Ureter, Percutaneous Endoscopic Approach (ICD-10-PCS; 2020-05-02)
PROC: 8E0W4CZ Robotic Assisted Procedure of Trunk Region, Percutaneous Endoscopic Approach (ICD-10-PCS; 2020-05-02)
PROC: 02HV33Z Insertion of Infusion Device into Superior Vena Cava, Percutaneous Approach (ICD-10-PCS; 2020-05-03)
PROC: 5A1D70Z Performance of Urinary Filtration, Intermittent, Less than 6 Hours Per Day (ICD-10-PCS; 2020-05-03)
DX: C64.1 Malignant neoplasm of right kidney, except renal pelvis (principal); N18.6 End stage renal disease; N17.9 Acute kidney failure, unspecified; I12.0 Hypertensive chronic kidney disease with stage 5 chronic kidney disease or end stage renal disease; D69.6 Thrombocytopenia, unspecified; E03.9 Hypothyroidism, unspecified; E78.5 Hyperlipidemia, unspecified; D63.1 Anemia in chronic kidney disease; E87.5 Hyperkalemia
CPT/HCPCS: A4314; A9284; C1769; J0690; J1170; J1644; J2270; J2370; J2597; J2704; J2916; J3010; J7030; J7050; J7120; Q5105

== ENCOUNTER 2020-05-23 10:11 | Outpatient (CLI) | payer MEDICARE, OTHER ==
[~2020-05-23] VITALS: Ht 180.3 cm; Wt 86.0 kg
[2020-05-23] VITALS (7 sets, daily range): BP systolic 158–185; BP diastolic 75–83; PULSE 68–77; TEMP 98
[~2020-05-23 10:11] MED LIST changes: +DULCOLAX TAB5 MG PO
[2020-05-23] MEDS ORDERED: PACERONE400 MG PO (12:01)
[2020-05-23] MEDS ORDERED: DULCOLAX TAB5 MG PO (12:05)
[2020-05-23] MEDS ORDERED: COLACE 100100 MG/CAP PO (12:06)
[2020-05-23] MEDS ORDERED: LASIX 40MG TABL40 MG PO (12:08)
--- NOTE | 2020-05-23 12:40 | NUR ---
SEE MERGE DOCUMENTATION FOR MEDICATION ADMINISTRATION AND INTRA/POST PROCEDURE SEDATION ASSESSMENTS.
--- NOTE | 2020-05-23 13:30 | NUR ---
back from open hearth furnace laborer b y bed. Alert and oriented, denies pain and needs at this time. VSS
--- NOTE | 2020-05-23 14:34 | NUR ---
Discharge home per
--- NOTE | 2020-05-23 14:45 | NUR ---
INT discontinued intact. Discharge instructions given. Transferred to private car by matthew
== END 2020-05-23 14:45 | disposition home or self-care (01) ==
LOC: COL.CAR 10:11
DX: T82.858A Stenosis of other vascular prosthetic devices, implants and grafts, initial encounter (principal); N18.6 End stage renal disease; Z88.8 Allergy status to other drugs, medicaments and biological substances; F17.210 Nicotine dependence, cigarettes, uncomplicated
CPT/HCPCS: J1644; J2250; J3010

== ENCOUNTER → 2020-07-08 | Outpatient (CLI) | payer MEDICARE, OTHER | LOC: COL.VAS 14:00 | DX: Z01.818 Encounter for other preprocedural examination (principal); N18.4 Chronic kidney disease, stage 4 (severe) ==

== ENCOUNTER → 2020-08-05 | Outpatient (CLI) | payer MEDICARE, OTHER | LOC: COL.VAS 08:00 | DX: Z01.818 Encounter for other preprocedural examination (principal); N18.6 End stage renal disease; Z99.2 Dependence on renal dialysis ==

== ENCOUNTER → 2021-03-14 | Outpatient (CLI) | payer MEDICARE, OTHER ==
[~2021-03-14] VITALS: Ht 180.3 cm; Wt 85.9 kg
[~2021-03-14] MED LIST changes: +COUMADIN 1MG1 MG/TAB PO; +EUTHYROX150 MCG PO; +IRON TABLETS325 MG PO; +MULTI-VITAMIN W1 TA2 PO; +NEURONTIN100 MG/CAP PO; +PHOSLO667 MG PO; +VITAMIN D31000 I1 PO
[2021-03-14 07:35] VITALS: BP 152/81; PULSE 96
[2021-03-14 08:10] VITALS: BP 144/77; PULSE 80
== END ==
LOC: COL.RAD 03-09 08:00
DX: Z49.01 Encounter for fitting and adjustment of extracorporeal dialysis catheter (principal)

== ENCOUNTER 2021-03-28 08:27 | Inpatient (IN) | payer MEDICARE, OTHER ==
[~2021-03-28] VITALS: Ht 180.3 cm; Wt 83.6 kg
[2021-03-28] VITALS (12 sets, daily range): BP systolic 106–171; BP diastolic 56–80; PULSE 61–87; TEMP 97.5–98.1
[~2021-03-28 08:27] MED LIST changes: -COUMADIN 1MG1 MG/TAB PO; -EUTHYROX150 MCG PO; -IRON TABLETS325 MG PO; -MULTI-VITAMIN W1 TA2 PO; -NEURONTIN100 MG/CAP PO; -PHOSLO667 MG PO; -VITAMIN D31000 I1 PO
[2021-03-28] MEDS ORDERED: IRON TABLETS325 MG PO (09:21)
[2021-03-28] MEDS ORDERED: SYNTHROID 0.10.15 MG PO (09:22)
[2021-03-28] MEDS ORDERED: FLEXERIL 1010 MG/TAB PO (09:22)
[2021-03-28] MEDS ORDERED: PHOSLO667 MG PO (09:23)
[2021-03-28] MEDS ORDERED: VITAMIN D31000 I1 PO (09:24)
--- NOTE | 2021-03-28 09:36 | NUR ---
TO RM AT 0835- CALL LIGHT IN REACH AT BEDSIDE.
[2021-03-28 09:42] LABS: CALCIUM 8.7 mg/dL (8.4-10.2); CREATININE, serum 5.94 (0.66-1.25); POTASSIUM 4.8 mmol/L (3.4-5.0)
--- NOTE | 2021-03-28 12:30 | NUR ---
Patient arrived to floor via bed. He is alert and oriented. Denies nausea and pain. He has a tamayo catheter secured to left leg, urine is pink without clots. Patient is on fluid restrictions due to dialysis and his renal failure. He is able to keep track of his fluids and not go over. He has a fistula to his left leg with a gauze dressing to the site. is at bedside but stated she will be going home soon. No other changes at this time. Call light within reach.
--- NOTE | 2021-03-28 19:00 | NUR ---
Patient stated his catheter is starting to clot off at this time. He does not have irrigation as per ordered by Dr Campbell. It looks the blood in his urine clotted off at the top of the port and was not draining. Have been checking his catheter since he got back from surgery to keep it free flowing. Once the clot was pushing through the catheter started to drain with light red urine. Dr Campbell made aware by Reed Patel RN. Patient did not have issues this afternoon until now. He had some drainage around the catheter, patient was cleaned up and moved to the chair and changed his bedding. No other changes at this time. Call light within reach. Patient stated he was feeling relief right away after getting the clot out and it is draining.
--- NOTE | 2021-03-28 20:00 | NUR ---
PATIENT CALLED OUT REPORTING HE WAS HAVING SEVERE BLADDER SPASMS AND HIS URINE WASN'T DRAINING INTO HIS CEJA. WHEN PATIENT HAS BLADDER SPASMS BLOODY URINE LEAKS AROUND HIS CEJA. PATIENT HAD BLOOD ALL OVER HIS GOWN & REQUIRED A COMPLETE BED CHANGE. IRRIGATED CEJA X2 WITH 30CC OF URINE AND REMOVED SEVERAL SMALL TO MED SIZE CLOTS. BLOODY URINE WITH CLOTS FLOWING IN CEJA TO DD. GAVE PRN B&O SUPP AND TYLENOL. WILL MONITOR. ALSO NOTED RIGHT WRIST IV SITE WAS BLOODY. REMOVED OLD IV SITE DRESSING AND NOTED LARGE CLOT AT IV SITE. IV CLEANED UP, FLUSHED EASILY AND NEW TEGADERM APPLIED. PATIENT DRINKING FLUIDS TO KEEP URINE FLOWING HOWEVER, IS ON A 1,500CC FLUIDS RESTRICTION. RENAL DIET. PATIENT RECEIVED DIALYSIS YESTERDAY. LEFT THIGH FISTULA WITH GOOD BRUIT & THRILL. HEAD TO TOE ASSESSMENT COMPLETE. CALL LIGHT IN REACH.
--- NOTE | 2021-03-28 21:30 | NUR ---
PATIENT CALLED C/O CATH NO DRAINING URINE. RN IRRIGATED X2, EVACUATED SMALL CLOTS, URINE RETURN NOTED. CEJA TO DD WITH DARK BLOODY URINE WITH CLOTS.
--- NOTE | 2021-03-28 22:30 | NUR ---
PATIENT CALLED OUT AGAIN REPORTING HE FEELS LIKE HIS CATH IS CLOGGED. NOTED CEJA WAS NOT DRAINING URINE AND PATIENT WAS HAVING SEVERE SPASMS AGAIN WITH URINE SPRAYING FROM AROUND THE CATH SITE WITH SPASMS. IRRIGATED X3 WITH 30CC AND REMOVED A 5 INCH CLOT. URINE STILL WAS NOT FLOWING AND PATIENT REPORTS FEELING "FULL". PATIENT WAS IRRIGATED BY 2 RN'S WITH NO SUCESS. DEFLATED AND ADVANCED CEJA, URINE WOULD START TO FLOW AND THEN STOPPED. CALLED UROLOGY, REPLACED CEJA WITH 22 GAUZE, THREE-WAY. BLOODY URINE WITH CLOTS DRAINING, APPROX 150CC. PATIENT STATES HE FEELS BETTER BUT STILL FEELS STRONG SPASMS. BLADDER SCAN SHOWED ONLY 65CC. PATIENT GIVEN PRN IV MORPHINE AND FLEXIRIL. WILL MONITOR.
--- NOTE | 2021-03-28 23:40 | NUR ---
PATIENT CALLED OUT C/O PRESSURE AND BLADDER SPASMS. URINE NOTE FLOWING IN CEJA. IRRIGATED X1 WITH 60CC AND GOT SEVERAL LARGE CLOT CLUSTERS WITH APPROX 500CC OF DARK BLOODY URINE. BLOODY URINE FLOWING FREELY IN CEJA TO DD. PATIENT STATES HE FEELS "SO MUCH BETTER". WILL MONITOR.
[2021-03-29] VITALS (21 sets, daily range): BP systolic 89–124; BP diastolic 34–75; PULSE 74–103; TEMP 97.3–98.4
--- NOTE | 2021-03-29 00:45 | NUR ---
PATIENT CALLED OUT STATING "ITS TIME TO IRRIGATE MY CATH AGAIN". CEJA NOT DRAINING. IRRIGATED X2 WITH 60CC AND EVACUATED MULTIPLE SMALL BLOOD CLOTS. GOT APPROX 300CC BLOODY URINE RETURN. CEJA BACK TO DD. PATIENT NOW UP IN BEDSIDE CHAIR. COMPLETE BED CHANGED PROVIDED.
--- NOTE | 2021-03-29 02:50 | NUR ---
WENT TO CHECK ON PATIENT, NOTED LARGE CLOT IN CEJA TUBING. IRRIGATED CEJA TUBING AND WAS ABLE TO REMOVE LARGE CLOT. PATIENT REPORTS HIS CEJA IS DRAINING WELL ENOUGH NOW THAT HE WAS ABLE TO GET A COUPLE HOURS OF SLEEP. WILL MONITOR.
--- NOTE | 2021-03-29 03:50 | NUR ---
PATIENT CALLED OUT REPORTING HE NEEDS HIS CATH IRRIGATED AGAIN. IRRIGATED X2 WITH 50CC AND EVACUATED MULTIPLE LITTLE BLOOD CLOTS. BLOODY URINE FLOWING IN CEJA TO DD. PATIENT NOW REPORTS HE GETS DIZZY WHEN HE SITS UP.
--- NOTE | 2021-03-29 05:00 | NUR ---
PATIENT C/O FEELING VERY DIZZY, NAUSEATED AND REPORTS HE FEELS LIKE HE COULD PASS OUT. NOTED B/P OF 94/57. PATIENT HAS LOST A LOT OF BLOOD DUE TO CLOTTING AND IRRIGATION NEEDS TO KEEP HIS URINE FREE FLOWING. NOTIFIED, SEE ORDERS. HOSPITALIST CONSULTED CALLED. LAB AT BEDSIDE.
--- NOTE | 2021-03-29 06:00 | NUR ---
AT BEDSIDE. CBI INFUSING WIDE OPEN. CEJA TO DD WITH RED URINE. 100CC FLUID BOLUS INFUSING. PATIENT ASYMPOTOMATIC WITH HOB LOWERED.
[2021-03-29 06:06] LABS: BASO # 0.1 (0.0-0.2); BASO % 0.2 % (0.0-2.0); GRAN # 18.5 (1.4-6.5); GRAN % 87.8 % (42.2-75.2); LYMPH # 1.4 (1.2-3.4); LYMPH % 6.6 % (20.0-51.0); MEAN CELL VOLUME 95 fl (80.0-100.0); MEAN CORPUSCULAR HGB CONC 32 g/dl (33.0-37.0); MEAN PLATELET VOLUME 11.7 fl (7.4-10.4); MONO # 0.8 (0.1-0.6); PLATELET COUNT 69 K/mm3 (130-400); RED BLOOD COUNT 2.67 M/mm3 (4.20-5.60); REDCELL DISTRIBUTION WIDTH-CV 13.2 % (11.5-14.5)
[2021-03-29 06:15] LABS: HEMATOCRIT 25.3 % (42.0-52.0); MEAN CORPUSCULAR HEMOGLOBIN 30 pg (27.0-31.0)
[2021-03-29 06:22] LABS: CALCIUM 8.3 mg/dL (8.4-10.2); CREATININE, serum 7.22 (0.66-1.25)
[2021-03-29 06:34] LABS: POTASSIUM 6.3 mmol/L (3.4-5.0)
--- NOTE | 2021-03-29 06:35 | NUR ---
PATIENT BECAME VERY DIZZY AND NAUSEATED. NOTED APPROX 100CC OF PATTERSON EMESIS. PRN IV ZOFRAN GIVEN. EMESIS BASIN AT BEDSIDE. AM SYNTHROID PILL NOT GIVEN AT THIS TIME DUE TO NAUSEA. PATIENT STATES HE WILL TRY AND TAKE IT LATER. PATIENT IS CURRENTLY NPO.
--- NOTE | 2021-03-29 07:30 | NUR ---
STARTING UNIT OF BLOOD PER ORDER. VSS AND PATIENT TOLERATING WELL.
--- NOTE | 2021-03-29 07:45 | NUR ---
PATIENT TOLERATING TRANSFUSION WELL SO FAR. VSS. GAURI RN TAKING OVER CARE.
--- NOTE | 2021-03-29 09:07 | NUR ---
Hospitalist consulted for the patient and status is now inpatient. Orchid Grower attended clinical rounds with the team. The patient was in dialysis.
--- NOTE | 2021-03-29 09:45 | NUR ---
Patient alert and oriented, answers questions appropriately. See assessment. Hernandez catheter patent, CBI infusing at fast rate. Urine bloody with debris noted. No c/o at this time.
--- NOTE | 2021-03-29 13:17 | NUR ---
Patient tolerated HD tx, no fluid removal. Given 900 mL of fluid for low Bps during tx without fluid removal. Next HD tx planned for Saturday03/31/21 @ 0800.
--- NOTE | 2021-03-29 14:38 | NUR ---
MUMTAZ met with the patient and his , Elaine (ph#[phone]), to discuss discharge plan. The patient lives in [place] with Elaine. He reports independence with ADLs and does not have any DME. The patient's PCP is Dr. Tristin Siu and he receives his medications from [facility] on [address] in . He reports no difficulties obtaining his meds. The patient does not have a DPOA-HC in EMR, but he states that he does have one completed and that it designates his . The patient plans to return home with his upon discharge. No additional needs at this time. *Discharge plan: home with *
[2021-03-29 15:33] LABS: MEAN CELL VOLUME 95 fl (80.0-100.0); MEAN CORPUSCULAR HGB CONC 33 g/dl (33.0-37.0); MEAN PLATELET VOLUME 12.2 fl (7.4-10.4); PLATELET COUNT 67 K/mm3 (130-400); RED BLOOD COUNT 2.91 M/mm3 (4.20-5.60); REDCELL DISTRIBUTION WIDTH-CV 13.8 % (11.5-14.5)
[2021-03-29 15:35] LABS: HEMATOCRIT 27.6 % (42.0-52.0); MEAN CORPUSCULAR HEMOGLOBIN 31 pg (27.0-31.0)
[2021-03-29 16:02] LABS: LYMPHOCYTE 8 % (20.0-51.0); NEUTROPHILS 86 % (42.0-75.2)
[2021-03-29 16:03] LABS: HYPOCHROMIA 1+; PLATELET ESTIMATE DECREASED (NORMAL)
[2021-03-29 16:06] LABS: OVALOCYTES 1+
[2021-03-29 16:25] LABS: CALCIUM 8.1 mg/dL (8.4-10.2); CREATININE, serum 5.66 (0.66-1.25); POTASSIUM 4.8 mmol/L (3.4-5.0)
--- NOTE | 2021-03-29 17:00 | NUR ---
CBI infusing at fast rate throughout the day, urine remains dark red, occasionally paul color. Hernandez catheter irrigated three times, large clots noted. Bladder spasms occur right before needing irrigation. Dr Campbell kept UTD on status throughout the day. Patient to surgery at 1730.
--- NOTE | 2021-03-29 18:15 | NUR ---
Patient to surgery with surgical staff at 1755.
--- NOTE | 2021-03-29 20:00 | NUR ---
Patient up from PACU at 1954. Patient drowsy but arouses easily. No complaints of pain. 2 L of oxygen via nasal cannula. CBI running fast draining clear fluid into dependent drainage bag. VSS. Call light in reach.
[2021-03-30] VITALS (15 sets, daily range): BP systolic 03–103; BP diastolic 34–82; PULSE 77–100; TEMP 97.4–98.6
--- NOTE | 2021-03-30 06:34 | NUR ---
Patient having no pain this morning. Room air. CBI draining clear running slow. Will report off to day shift.
[2021-03-30 06:43] LABS: BASO # 0.1 (0.0-0.2); BASO % 0.6 % (0.0-2.0); EOS # 0.1 (0.0-0.7); EOS % 0.4 % (0-4.0); GRAN # 12.7 (1.4-6.5); GRAN % 80.8 % (42.2-75.2); HEMATOCRIT 23.9 % (42.0-52.0); HEMOGLOBIN 7.8 g/dl (13.5-18.0); LYMPH # 1.6 (1.2-3.4); LYMPH % 10.3 % (20.0-51.0); MEAN CELL VOLUME 97 fl (80.0-100.0); MEAN CORPUSCULAR HEMOGLOBIN 32 pg (27.0-31.0); MEAN CORPUSCULAR HGB CONC 33 g/dl (33.0-37.0); MEAN PLATELET VOLUME 12.4 fl (7.4-10.4); MONO # 1.2 (0.1-0.6); MONO % 7.3 % (1.7-9.3); PLATELET COUNT 67 K/mm3 (130-400); RED BLOOD COUNT 2.47 M/mm3 (4.20-5.60); REDCELL DISTRIBUTION WIDTH-CV 14.8 % (11.5-14.5)
[2021-03-30 07:01] LABS: CALCIUM 7.9 mg/dL (8.4-10.2); CREATININE, serum 7.2 (0.66-1.25); POTASSIUM 5.2 mmol/L (3.4-5.0)
[2021-03-30 08:20] LABS: PATHOLOGY DIFF REVIEW OK
--- NOTE | 2021-03-30 10:04 | NUR ---
Several visit attempts; Patient sleeping, Home Health Lpn left prayer card offering God's blessings and the availability of spiritual care.
--- NOTE | 2021-03-30 10:25 | NUR ---
Dairy Manager attended clincial rounds with the team. PT/OT ordered.
--- NOTE | 2021-03-30 12:31 | NUR ---
Contacted Madiha BRADLEY, patient BP 88/41. Recheck in 30 min, no new orders at this time.
--- NOTE | 2021-03-30 13:24 | NUR ---
BP recheck at , notified Madiha BRADLEY.
--- NOTE | 2021-03-30 15:48 | NUR ---
Notified Madiha BRADLEY of low BP. No new orders at this time.
[2021-03-30 16:43] LABS: HEMATOCRIT 21.2 % (42.0-52.0)
--- NOTE | 2021-03-30 18:10 | NUR ---
Contacted Dr. Best re BP and H&H. New order for 2 units PRBC.
--- NOTE | 2021-03-30 19:00 | NUR ---
Patient up to reclincer throughout the day. Spouse at bedside this afternoon. Hernandez to DD with cloudy yellow urine present, CBI infusing at a very slow rate. Fluid bolus of 250 given for low BP this afternoon per orders. Patient will be recieving 2 Units PRBC per orders. Reported off to machinist 2nd shift.
--- NOTE | 2021-03-30 19:51 | NUR ---
Blood transfusion started with JATIN Avila. Remained at bedside for first 15 minutes. Patient tolerated well.
--- NOTE | 2021-03-30 23:59 | NUR ---
2nd unit of blood started at this time. JATIN Cleary, verified blood. VSS.
[2021-03-31] VITALS (9 sets, daily range): BP systolic 101–132; BP diastolic 38–62; PULSE 83–97; TEMP 97–98.8
--- NOTE | 2021-03-31 04:57 | NUR ---
Patient tolerated blood transfusion well with no complaints. Patient does sound a little wet after transfusion. No complaints of pain. CBI running slow draining clear yellow fluid to dependent drainage bag. Blood pressures are still soft but a little higher.
--- NOTE | 2021-03-31 06:23 | NUR ---
Patient has not been eating much. Offered him food several times throughout the shift but patient refused. Requested a coffee this morning.
[2021-03-31 07:01] LABS: CALCIUM 7.5 mg/dL (8.4-10.2); CREATININE, serum 8.68 (0.66-1.25); POTASSIUM 4.4 mmol/L (3.4-5.0)
[2021-03-31 07:07] LABS: BASO % 0.4 % (0.0-2.0); EOS # 0.2 (0.0-0.7); EOS % 2.4 % (0-4.0); GRAN # 5.9 (1.4-6.5); LYMPH # 0.8 (1.2-3.4); LYMPH % 10.8 % (20.0-51.0); MEAN CORPUSCULAR HGB CONC 34 g/dl (33.0-37.0); MEAN PLATELET VOLUME 12.2 fl (7.4-10.4); MONO # 0.4 (0.1-0.6); MONO % 5.7 % (1.7-9.3); RED BLOOD COUNT 2.55 M/mm3 (4.20-5.60); REDCELL DISTRIBUTION WIDTH-CV 15.8 % (11.5-14.5)
[2021-03-31 07:52] LABS: HEMATOCRIT 23.3 % (42.0-52.0); HEMOGLOBIN 7.9 g/dl (13.5-18.0); MEAN CELL VOLUME 91 fl (80.0-100.0); MEAN CORPUSCULAR HEMOGLOBIN 31 pg (27.0-31.0)
[2021-03-31 07:53] LABS: PLATELET COUNT 36 K/mm3 (130-400)
--- NOTE | 2021-03-31 07:58 | NUR ---
Contacted Madiha BRADLEY about platelet count
--- NOTE | 2021-03-31 08:30 | NUR ---
Patient to dialysis by bed.
--- NOTE | 2021-03-31 11:44 | NUR ---
Sally tolerated HD tx with 300mL fluid removal. Next planned tx on Saturday04/03/21 @ the clinic for 614.
--- NOTE | 2021-03-31 13:50 | NUR ---
Patient primed with 100 ml of saline, states he feels like if he needs to void. Hernandez discontinued per orders. Educated patient on using urinal and 6 cup routine. Denies further needs at this time. Spouse at bedside. Patient tolerated procedure well.
--- NOTE | 2021-03-31 15:31 | NUR ---
Patient voided approximately 75 ml, clear pink urine. Family at bedside.
--- NOTE | 2021-03-31 18:53 | NUR ---
Dr. Thompson aware patient only voided once since tamayo out, encourage fluids. No additional orders at this time.
[2021-04-01 03:58] VITALS: BP 106/44; PULSE 83; TEMP 98.2
--- NOTE | 2021-04-01 05:06 | NUR ---
PATIENT REPORTED HE HAS RESTED VERY WELL THROUGHOUT THE NIGHT. NO NEW ISSUES NOTED OR REPORTED BY PATIENT.
--- NOTE | 2021-04-01 08:00 | NUR ---
Patient sitting up in recliner, alert and oriented x 3. Assessment complete. Patient voiding without difficulties. Left femoral fistula with gauze CDI. Denies further needs at this time.
[2021-04-01 08:21] VITALS: BP 116/45; PULSE 80; TEMP 98.3
--- NOTE | 2021-04-01 11:30 | NUR ---
Discharge education provided to patient and spouse. All questions answered. INT to left upper arm discontinued, catheter tip intact. Denies further needs at this time. Patient showered independently prior to discharge. Patient out by wheelchair with surgical staff and family.
== END 2021-04-01 11:30 | disposition home or self-care (01) | DRG 662 ==
LOC: SDCO 08:27 → SURG 12:31 → SDCO 03-29 09:04 → SURG 03-29 09:05
PROVIDERS: Nurse Anesthetist, Certified Registered; Physician Assistant; ADMIT Urology
PROC: 0TBB8ZZ Excision of Bladder, Via Natural or Artificial Opening Endoscopic (ICD-10-PCS; 2021-03-28)
PROC: 5A1D70Z Performance of Urinary Filtration, Intermittent, Less than 6 Hours Per Day (ICD-10-PCS; 2021-03-29)
PROC: 0TCB8ZZ Extirpation of Matter from Bladder, Via Natural or Artificial Opening Endoscopic (ICD-10-PCS; 2021-03-29)
PROC: 0W3R8ZZ Control Bleeding in Genitourinary Tract, Via Natural or Artificial Opening Endoscopic (ICD-10-PCS; principal; 2021-03-29 17:15)
DX: N99.89 Other postprocedural complications and disorders of genitourinary system (principal); N18.6 End stage renal disease; I12.0 Hypertensive chronic kidney disease with stage 5 chronic kidney disease or end stage renal disease; N17.9 Acute kidney failure, unspecified; D62 Acute posthemorrhagic anemia; Z99.2 Dependence on renal dialysis; R31.0 Gross hematuria; N32.89 Other specified disorders of bladder; D69.6 Thrombocytopenia, unspecified; C67.4 Malignant neoplasm of posterior wall of bladder; E78.5 Hyperlipidemia, unspecified; E03.9 Hypothyroidism, unspecified; I48.0 Paroxysmal atrial fibrillation; N40.0 Benign prostatic hyperplasia without lower urinary tract symptoms; Z85.54 Personal history of malignant neoplasm of ureter; F17.210 Nicotine dependence, cigarettes, uncomplicated; I95.89 Other hypotension; D72.828 Other elevated white blood cell count; E87.5 Hyperkalemia; K21.9 Gastro-esophageal reflux disease without esophagitis; Z90.5 Acquired absence of kidney; Z88.8 Allergy status to other drugs, medicaments and biological substances; D63.1 Anemia in chronic kidney disease; R09.02 Hypoxemia
CPT/HCPCS: OP; 99223; 99232-AI; J0690; J1100; J1756; J2270; J2405; J2597; J2704; J3010; J7030; J7050; P9037; P9040; Q5105

== ENCOUNTER 2021-08-29 14:01 | Observation (INO) | payer MEDICARE, OTHER ==
[~2021-08-29] VITALS: Ht 180.3 cm; Wt 81.0 kg
[2021-08-29] VITALS (9 sets, daily range): BP systolic 122–156; BP diastolic 57–76; PULSE 52–72; TEMP 97.7
[~2021-08-29 14:01] MED LIST changes: +IRON TABLETS325 MG PO; +PHOSLO667 MG PO; +VITAMIN D31000 I1 PO
[2021-08-29] MEDS ORDERED: NEURONTIN100 MG/CAP PO (14:33)
[2021-08-29] MEDS ORDERED: MULTI-VITAMIN W1 TA2 PO (14:34)
[2021-08-29] MEDS ORDERED: COUMADIN 1MG1 MG/TAB PO (18:32)
[2021-08-29] MEDS ORDERED: EUTHYROX150 MCG PO (18:58)
--- NOTE | 2021-08-29 19:15 | NUR ---
Pt recently arrived to the floor from [facility]. He is alert and oriented. CBI running at moderate rate. Output is clear and pink tinged. Oriented pt to his room and educated on room service. He has ordered something to eat. Pts was present, but has left. No pain, but states that he is a little uncomfortable from the catheter.
[2021-08-30] VITALS (7 sets, daily range): BP systolic 122–149; BP diastolic 55–64; PULSE 56–98; TEMP 97.7–98.6
--- NOTE | 2021-08-30 00:50 | NUR ---
PT RESTING QUIETLY IN BED WITH EYES CLOSED, RESPIRATIONS UNLABORED. CBI IS RUNNING @ A MODERATE RATE, URINE IS PEACH COLORED. PT EARLIER HAD BEEN ADMINISTERED B&O SUPPOSITORY FOR BLADDER SPASMS. PT HAD REQUESTED EARLIER THAT HE BE ABLE TO TAKE LASIX IN THE MORNING INSTEAD OF @ NIGHT LIKE HE HAD BEEN @ HOME.
--- NOTE | 2021-08-30 06:21 | NUR ---
PT IS AWAKE IN BED WITH HOB ELEVATED. PT IS PLEASANT, REQUESTS SOME COFFEE. CBI CONTINUES RUNNING @ A MODERATE RATE TO KEEP OUTPUT LIGHT PINK IN COLOR. PT DENIES ANY PAIN, STATES THAT SUPPOSITORY GIVEN LAST NIGHT DID HELP WITH SPASMS. DENIES OTHER NEEDS. CALL LIGHT WITHIN REACH.
[2021-08-30 07:08] LABS: CALCIUM 8.7 mg/dL (8.4-10.2); CREATININE, serum 7.67 mg/dL (0.72-1.25); POTASSIUM 5.4 mmol/L (3.5-4.5)
--- NOTE | 2021-08-30 08:21 | NUR ---
Pt doing well this am. He reported that he had a good night, no pain complaints this am. CBI increased at shift change due to output being red, it did clear up quickly, few clots seen at this time. Pt is aware that he will be having dialysis today. has been in to see patient, CBI clamped at this time. Will closely monitor output. No needs verbalized, call light within reach
[2021-08-30 09:30] LABS: BASO % 0.3 % (0.0-2.0); EOS % 0.1 % (0-4.0); GRAN # 9.3 K/mm3 (1.4-6.5); LYMPH # 0.8 K/mm3 (1.2-3.4); LYMPH % 7.4 % (20.0-51.0); MEAN CELL VOLUME 98 fl (80.0-100.0); MEAN CORPUSCULAR HGB CONC 31 g/dl (33.0-37.0); MEAN PLATELET VOLUME 11.3 fl (7.4-10.4); MONO # 0.4 K/mm3 (0.1-0.6); MONO % 3.6 % (1.7-9.3); PLATELET COUNT 79 K/mm3 (130-400); RED BLOOD COUNT 3.14 M/mm3 (4.20-5.60); REDCELL DISTRIBUTION WIDTH-CV 13.5 % (11.5-14.5)
[2021-08-30 09:33] LABS: HEMATOCRIT 30.7 % (42.0-52.0); HEMOGLOBIN 9.6 g/dl (13.5-18.0); MEAN CORPUSCULAR HEMOGLOBIN 31 pg (27.0-31.0)
--- NOTE | 2021-08-30 10:14 | NUR ---
SW met with the patient to discuss discharge plan. The patient lives in [place] with his , Elaine (ph#[phone]). He reports independence with ADLs and does not have any DME. the patient's PCP is Dr. Tristin Siu and he receives his medications from [facility] in . He reports no difficulties obtaining his meds. The patient does not have a DPOA-HC in EMR, but he states that he does have one completed and that it designates his . The patient plans to return home with his upon discharge. No additional needs at this time. *Discharge plan: home with *
--- NOTE | 2021-08-30 11:42 | NUR ---
First visit from the greeting card writer. No needs right now.
--- NOTE | 2021-08-30 13:00 | NUR ---
Pt has done well throughout the day. No pain complaints. Output was a dark red when CBI off, small clots noted. CBI turned back on at slow rate. Dr Campbell aware. Pt updated that he will be getting dialysis tomorrow. Pt denies any needs, call light within reach
--- NOTE | 2021-08-30 18:33 | NUR ---
Pt continued to do well throughout the rest of the day. CBI ran at slow rate, pink output, minimal clots seen. No pain complaints, no needs verbalized, call light within reach
--- NOTE | 2021-08-30 21:48 | NUR ---
CHARGE NURSE ET SALES AGENT FINANCIAL REPORT SERVICE NOTIFIED OF ORDERS TO GIVE DESMOPRESSIN IV. WAITING FOR MEDICATION TO BE AVAILABLE @ THIS TIME. SALES AGENT FINANCIAL REPORT SERVICE WILL HAVE TO COLLECT FROM PHARMACY.
--- NOTE | 2021-08-30 23:40 | NUR ---
DESMOPRESSIN IV STARTED @ 2250. PT GIVEN EDUCATION ON USE OF MEDICATION ET POSSIBLE SIDE EFFECTS. BP MONITORED. BP @ 2250 IS 127/58. DESMOPRESSIN IS FINISHED INFUSING ET IS FLUSHED WITH NS @ 2335. BP IS 108/51. PT IS VERY RELAXED ET HAD PREVIOUSLY BEEN SLEEPING, AROUSES EASILY ET BECOMES FULLY ALERT. DENIES ANY DIZZINESS. WILL CONTINUE TO MONITOR.
[2021-08-31] VITALS (8 sets, daily range): BP systolic 105–150; BP diastolic 37–63; PULSE 56–66; TEMP 97.2–98.7
--- NOTE | 2021-08-31 05:54 | NUR ---
PT IS AWAKE, RESTING IN BED WITH TV ON. PT STATES THAT HE SLEPT WELL, DENIES ANY PAIN. CBI RUNNING @ A MODERATE RATE TO KEEP OUTPUT PINK, OCCASIONALLY BECOMES DARKER. CEJA CATHETER DRAINING. PT DENIES OTHER NEEDS, CALL LIGHT WITHIN REACH.
--- NOTE | 2021-08-31 08:54 | NUR ---
PT IN BED EATING BREAKFAST. VSS, DR. BROWN IN TO SEE PT. CONTACTED LAB FOR PLATELET INFORMATION. FORWARDED TO . CBI RUNNING TO KEEP LIGHT PINK. PT TO DIALYSIS AT THIS TIME. RAIN STEINER TOOK OVER CARE.
[2021-08-31 09:36] LABS: BASO # 0.1 K/mm3 (0.0-0.2); BASO % 1.1 % (0.0-2.0); EOS # 0.3 K/mm3 (0.0-0.7); EOS % 3.5 % (0-4.0); GRAN # 6.2 K/mm3 (1.4-6.5); GRAN % 72.6 % (42.2-75.2); HEMATOCRIT 27.1 % (42.0-52.0); HEMOGLOBIN 8.7 g/dl (13.5-18.0); LYMPH # 1.4 K/mm3 (1.2-3.4); LYMPH % 16.8 % (20.0-51.0); MEAN CELL VOLUME 95 fl (80.0-100.0); MEAN CORPUSCULAR HEMOGLOBIN 30 pg (27.0-31.0); MEAN CORPUSCULAR HGB CONC 32 g/dl (33.0-37.0); MEAN PLATELET VOLUME 11.2 fl (7.4-10.4); MONO # 0.5 K/mm3 (0.1-0.6); MONO % 5.4 % (1.7-9.3); PLATELET COUNT 72 K/mm3 (130-400); RED BLOOD COUNT 2.86 M/mm3 (4.20-5.60)
[2021-08-31 09:56] LABS: ALBUMIN 2.9 gm/dL (3.4-4.8); CALCIUM 8.3 mg/dL (8.4-10.2); CREATININE, serum 8.52 mg/dL (0.72-1.25); PHOSPHOROUS 6.3 mg/dL (2.3-4.7); POTASSIUM 4.7 mmol/L (3.5-4.5)
[2021-08-31] MEDS ORDERED: PHOSLO667 MG PO (10:45)
--- NOTE | 2021-08-31 11:40 | NUR ---
PATIENT TOLERATED HD TX WITH 2L FLUID REMOVAL. NEXT PLANNED HD TX SCHEDULED ON Saturday09/04/21 @ [facility].
--- NOTE | 2021-08-31 13:05 | NUR ---
Initial visit; Patient thanked Slitting Machine Operator Helper for stopping in and visiting and offering God's blessings.
--- NOTE | 2021-08-31 14:01 | NUR ---
PT UP TO BR WITH SBA X1, PT HAD MED BM AND THEN RETURNED TO BED WITH SBA X1.
[2021-09-01] VITALS (9 sets, daily range): BP systolic 131–167; BP diastolic 49–66; PULSE 61–70; TEMP 97.6–98.2
--- NOTE | 2021-09-01 06:04 | NUR ---
PT IS RESTING QUIETLY IN BED. AWAKENS WHEN THIS NURSE ENTERS ROOM. CBI IS RUNNING @ A MODERATE RATE TO KEEP OUTPUT CLEAR PINK. DARKENS OCCASIONALLY IN CEJA TUBING. PT DENIES ANY PAIN. REQUESTS ET GIVEN COFFEE TO DRINK. PT DENIES OTHER NEEDS, CALL LIGHT WITHIN REACH.
--- NOTE | 2021-09-01 08:50 | NUR ---
Pt resting in bed. He has had breakfast, no complaints. Educated pt on the plan of care for the day. Informed him I would remove tamayo and then he would be getting platelets later this am when they arrive. Pt denies any needs, call light within reach
[2021-09-01 09:02] LABS: MEAN CELL VOLUME 98 fl (80.0-100.0); MEAN CORPUSCULAR HGB CONC 32 g/dl (33.0-37.0); MEAN PLATELET VOLUME 10.8 fl (7.4-10.4); PLATELET COUNT 83 K/mm3 (130-400); RED BLOOD COUNT 2.96 M/mm3 (4.20-5.60)
[2021-09-01 09:05] LABS: HEMATOCRIT 28.9 % (42.0-52.0); HEMOGLOBIN 9.1 g/dl (13.5-18.0); MEAN CORPUSCULAR HEMOGLOBIN 31 pg (27.0-31.0)
--- NOTE | 2021-09-01 11:39 | NUR ---
Pt doing well, no pain complaints. Platelets started
--- NOTE | 2021-09-01 11:54 | NUR ---
Stayed with pt for 15 minutes while platelets infusing. No signs of reaction. Hernandez removed during this time. Educated pt on using urinal when he needs to void. Platelets increased to 200ml/hr. VSS
--- NOTE | 2021-09-01 12:34 | NUR ---
Pt doing well, no signs of reaction from platelets. is present in the room. Discussed getting something ordered for lunch. No needs verbalized, call light within reach
--- NOTE | 2021-09-01 13:17 | NUR ---
Patient sitting up in bed eating lunch. Pleasant demeanor. His is in the room at this time. Platelets infusing currently, patient tolerating it well. Call light nearby. Patient states he will call if he needs anything.
--- NOTE | 2021-09-01 14:00 | NUR ---
Pt doing well. He has voided x2, no clots seen output is light red. No needs verbalized, will continue to monitor
--- NOTE | 2021-09-01 16:28 | NUR ---
Reviewed discharge instructions with pt, verbalized understanding. INT removed from right hand.
== END 2021-09-01 16:39 | disposition home or self-care (01) ==
LOC: SURG 14:01 → SDCO 14:01 → SURG 18:15 → SDCO 08-31 10:01 → SURG 08-31 10:02 → SDCO 08-31 18:15 → SURG 09-01 16:39
PROVIDERS: Internal Medicine Nephrology; ADMIT Urology
DX: C67.9 Malignant neoplasm of bladder, unspecified (principal); I12.0 Hypertensive chronic kidney disease with stage 5 chronic kidney disease or end stage renal disease; I25.10 Atherosclerotic heart disease of native coronary artery without angina pectoris; N18.6 End stage renal disease; R31.0 Gross hematuria; C66.1 Malignant neoplasm of right ureter; E03.9 Hypothyroidism, unspecified; E78.5 Hyperlipidemia, unspecified; E87.1 Hypo-osmolality and hyponatremia; D64.89 Other specified anemias; D69.6 Thrombocytopenia, unspecified; D72.828 Other elevated white blood cell count; F17.210 Nicotine dependence, cigarettes, uncomplicated; Z20.822 Contact with and (suspected) exposure to COVID-19; Z99.2 Dependence on renal dialysis; Z92.21 Personal history of antineoplastic chemotherapy; Z79.01 Long term (current) use of anticoagulants; Z79.899 Other long term (current) drug therapy; Z80.9 Family history of malignant neoplasm, unspecified
CPT/HCPCS: OP; G0378; J0690; J1100; J1756; J2405; J2597; J2704; J3010; J7030; P9035; Q5105

== ENCOUNTER 2022-02-27 10:58 | Day surgery (SDC) | payer MEDICARE, OTHER ==
[2022-02-27] VITALS (8 sets, daily range): BP systolic 137–181; BP diastolic 70–94; PULSE 64–75; TEMP 97.3–98.6
[~2022-02-27] VITALS: Ht 180.3 cm; Wt 81.9 kg
[~2022-02-27 10:58] MED LIST changes: +COUMADIN 1MG1 MG/TAB PO; +EUTHYROX150 MCG PO; +MULTI-VITAMIN W1 TA2 PO; +NEURONTIN100 MG/CAP PO
[2022-02-27] MEDS ORDERED: EUTHYROX150 MCG PO (11:25)
[2022-02-27] MEDS ORDERED: EUTHYROX25 MCG PO (11:25)
[2022-02-27] MEDS ORDERED: SODIUM BICARBO650 MG PO (11:26)
[2022-02-27] MEDS ORDERED: FLEXERIL5 MG PO (11:27)
[2022-02-27] MEDS ORDERED: IRON TABLETS325 MG PO (11:29)
[2022-02-27 12:07] LABS: BASO # 0.2 K/mm3 (0.0-0.2); BASO % 2.3 % (0.0-2.0); EOS # 0.5 K/mm3 (0.0-0.7); EOS % 5.3 % (0.0-4.0); GRAN # 6.1 K/mm3 (1.4-6.5); GRAN % 65.1 % (42.2-75.2); HEMATOCRIT 40.7 % (42.0-52.0); HEMOGLOBIN 12.6 g/dl (13.5-18.0); LYMPH # 1.8 K/mm3 (1.2-3.4); MEAN CELL VOLUME 97 fl (80.0-100.0); MEAN CORPUSCULAR HEMOGLOBIN 30 pg (27-31); MEAN CORPUSCULAR HGB CONC 31 g/dl (33.0-37.0); MEAN PLATELET VOLUME 10.3 fl (7.4-10.4); MONO # 0.7 K/mm3 (0.1-0.6); MONO % 7.8 % (1.7-9.3); PLATELET COUNT 148 K/mm3 (130-400); RED BLOOD COUNT 4.21 M/mm3 (4.20-5.60); REDCELL DISTRIBUTION WIDTH-CV 13.7 % (11.5-14.5)
[2022-02-27] MEDS ORDERED: NPLATE125 MCG SQ (12:08)
[2022-02-27 12:10] LABS: CALCIUM 8.4 mg/dL (8.4-10.2); CREATININE, serum 7.64 mg/dL (0.72-1.25); POTASSIUM 4.6 mmol/L (3.5-4.5)
[2022-02-27] MEDS ORDERED: KEYTRUDA25 MG/ML IV (12:12)
--- NOTE | 2022-02-27 13:00 | NUR ---
The patient is sitting up in bed playing cards with his and appears to be resting comfortable on the cart at this time. The patient denies any needs at this time. Will continue to monitor the patient.
--- NOTE | 2022-02-27 14:45 | NUR ---
The patient's unit of platelets was verified with JATIN Randall prior to him taking the patient back to the operating room. The patient's order is to have the platelets infuse during surgery. Dmitry Prater CRNA is aware of the patient's order for platetets during surgery.
--- NOTE | 2022-02-27 17:04 | NUR ---
PT TO ROOM 331 PER BED WITH REPORT FROM DEEP STEINER PACU @4915. PT IS A/O X3. LUNGS COARSE THROUGH OUT. BOWEL SOUNDS HYPO. CEJA TO DD WITH CBI RUNNING SLOW WITH CLEAR FLUID IN CEJA BAG TO DD. IV TO PUMP PER ORDERS.
--- NOTE | 2022-02-27 20:00 | NUR ---
PATIENT IS A&O. NOTED ELEVATED B/P IN THE 160-170'S SYSTOLIC WHICH DAY NURSE AND PATIENT REPORTED HAS BEEN HIS BASELINE SINCE ADMIT. ALL OTHER VSS. PATIENT DENIES PAIN OR NAUSEA. CEJA TO DD WITH CBI INFUSING AT MOD RATE, URINE IS LIGHT PINK, CLEAR, NO CLOTS. IV FLUIDS INFUSING VIA PUMP INTO RIGHT FORARM IV. NOTED AV FISTULA, PATIENT GETS DIALYSIS M, W & F. RENAL DIET. PM MEDS GIVEN PER ORDERS. HEAD TO TOE ASSESSMENT COMPLETE. NO OTHER NEEDS AT THIS TIME. CALL LIGHT IN REACH.
[2022-02-28 03:50] VITALS: BP 160/96; PULSE 62; TEMP 97.6
[2022-02-28 08:00] VITALS: BP 179/86; PULSE 72; TEMP 97.8
[2022-02-28 09:17] LABS: HEMATOCRIT 37.3 % (42.0-52.0); MEAN CELL VOLUME 95 fl (80.0-100.0); MEAN CORPUSCULAR HEMOGLOBIN 31 pg (27-31); MEAN CORPUSCULAR HGB CONC 32 g/dl (33.0-37.0); MEAN PLATELET VOLUME 10.4 fl (7.4-10.4); PLATELET COUNT 164 K/mm3 (130-400); RED BLOOD COUNT 3.94 M/mm3 (4.20-5.60); REDCELL DISTRIBUTION WIDTH-CV 13.4 % (11.5-14.5)
--- NOTE | 2022-02-28 09:19 | NUR ---
Initial contact; Patient being moved from room, Clinical Pathologist addressed him and wished him well. He greeted Clinical Pathologist as well.
[2022-02-28 09:29] LABS: ALBUMIN 3.1 gm/dL (3.4-4.8); CALCIUM 8.5 mg/dL (8.4-10.2); CREATININE, serum 7.89 mg/dL (0.72-1.25); PHOSPHOROUS 5.4 mg/dL (2.3-4.7); POTASSIUM 5.4 mmol/L (3.5-4.5)
[2022-02-28 09:44] LABS: BAND 3 % (0-10); LYMPHOCYTE 6 % (20.0-51.0); NEUTROPHILS 91 % (42.0-75.2)
[2022-02-28 09:45] LABS: PLATELET ESTIMATE NORMAL (NORMAL)
--- NOTE | 2022-02-28 11:54 | NUR ---
PATIENT TOLERATED HD TX WITH 2.1L OF FLUID REMOVED. NEXT PLANNED HD TX ON Saturday03/02/22 @ 0615 @ [facility].
[2022-02-28 12:03] VITALS: BP 163/80; PULSE 80; TEMP 97.8
--- NOTE | 2022-02-28 12:05 | NUR ---
Attempted to meet with patient to complete intake. Patient in dialysis at the time. Will try again later.
--- NOTE | 2022-02-28 13:43 | NUR ---
nursing home social worker met with patient to discuss discharge plan. Patient reports that he lives at home with his Elaine ([phone]) in [place]. Patient reports to being fully independent with his ADL's and does not utilize any DME to assist with mobility. Patient reports to no home oxygen needs. PCP is Dr. Siu and he utilizes [facility] in [place] for medications with no cost difficulty. Patient states that he has been receiving dislysis for about a year. He goes to the [facility] every M,W,. He reports that he does have a DPOA-HC established listing his Elaine. Patient is planning on returning home once medically ready. Discharge plan: Home with spouse
[2022-02-28 16:00] VITALS: BP 122/64; PULSE 81; TEMP 97.6
[2022-02-28 19:53] VITALS: BP 146/65; PULSE 71; TEMP 97.7
--- NOTE | 2022-02-28 20:24 | NUR ---
PT RESTING IN BED. DENIES PAIN. NO NEEDS AT THIS TIME.
[2022-02-28 23:39] VITALS: BP 138/69; PULSE 64; TEMP 97.5
[2022-03-01 04:05] VITALS: BP 169/74; PULSE 64; TEMP 97.9
--- NOTE | 2022-03-01 05:00 | NUR ---
HAVING SOME BLADDER SPASMS. SE JAN FOR SCHEDULED TYLENOL GIVEN.
--- NOTE | 2022-03-01 05:15 | NUR ---
PT REPORTS VOIDING CLEAR YELLOW URINE THROUGH THE NIGHT.
[2022-03-01 08:00] VITALS: BP 119/67; PULSE 72; TEMP 98.1
--- NOTE | 2022-03-01 08:08 | NUR ---
Assessment completed, alert/oriented, vital signs stable, denies pain or discomfort, voiding urine well/ denies blood in urine, urology has been by and place discharge orders for today, patient istting up eating, called his to pick him up, denie needs
--- NOTE | 2022-03-01 10:25 | NUR ---
Initial visit; Patient doing well and about to go home. Optical Lathe Operator wished him well and offered God's blessings.
--- NOTE | 2022-03-01 11:39 | NUR ---
Discharge instructions reviewed with patient , instructed to follow up with urology as scheduled, IV removed, instructed to stay hydrated, leaving with , VALUE ENGINEER esorted him out the door
== END 2022-03-01 11:42 | disposition home or self-care (01) ==
LOC: SDCO 10:58 → SURG 16:18 → SDCO 03-01 11:42
PROVIDERS: Internal Medicine Nephrology; Urology
DX: C67.9 Malignant neoplasm of bladder, unspecified (principal); I12.0 Hypertensive chronic kidney disease with stage 5 chronic kidney disease or end stage renal disease; I25.10 Atherosclerotic heart disease of native coronary artery without angina pectoris; D69.6 Thrombocytopenia, unspecified; D69.1 Qualitative platelet defects; N18.6 End stage renal disease; F17.210 Nicotine dependence, cigarettes, uncomplicated; Z99.2 Dependence on renal dialysis
CPT/HCPCS: OP; J0690; J1100; J2270; J2405; J2704; J3010; J7030; P9035

== ENCOUNTER → 2023-03-01 | Outpatient (CLI) | payer MEDICARE, OTHER ==
[~2023-03-01] VITALS: Ht 180.3 cm; Wt 78.3 kg
[~2023-03-01] MED LIST changes: +EUTHYROX25 MCG PO; +KEYTRUDA25 MG/ML IV; +NPLATE125 MCG SQ; +SYNTHROID0.2 MG/TAB PO
[2023-03-01 07:58] VITALS: BP 146/73; PULSE 88; TEMP 97.2
[2023-03-01 09:00] VITALS: BP 129/80; PULSE 77
[2023-03-01 09:26] LABS: PLEURAL FLUID RBC 1000 /mm3 (0-0); PLEURAL FLUID WBC 1687 /mm3
[2023-03-01 09:27] LABS: PLEURAL FLUID APPEARANCE CLEAR; PLEURAL FLUID COLOR YELLOW
== END ==
LOC: COL.RAD 06:57
PROVIDERS: Internal Medicine
DX: J90 Pleural effusion, not elsewhere classified (principal); Z85.51 Personal history of malignant neoplasm of bladder
CPT/HCPCS: 19804

== ENCOUNTER 2023-08-29 09:02 | Day surgery (SDC) | payer MEDICARE, OTHER ==
[~2023-08-29] VITALS: Ht 177.8 cm; Wt 76.5 kg
[2023-08-29 09:40] VITALS: BP 147/71; PULSE 74; TEMP 97.3
[2023-08-29] MEDS ORDERED: FOLIC ACID 11 MG/TA1 PO (10:08)
[2023-08-29 10:14] LABS: BASO # 0.2 K/mm3 (0.0-0.2); BASO % 2.2 % (0.0-2.0); EOS # 0.3 K/mm3 (0.0-0.7); EOS % 3.7 % (0.0-4.0); GRAN # 5.7 K/mm3 (1.4-6.5); GRAN % 66.6 % (42.2-75.2); HEMATOCRIT 37.8 % (42.0-52.0); HEMOGLOBIN 12.1 g/dl (13.5-18.0); LYMPH # 1.3 K/mm3 (1.2-3.4); LYMPH % 15.5 % (20.0-51.0); MEAN CELL VOLUME 96 fl (80.0-100.0); MEAN CORPUSCULAR HEMOGLOBIN 31 pg (27-31); MEAN CORPUSCULAR HGB CONC 32 g/dl (33.0-37.0); MEAN PLATELET VOLUME 10.5 fl (7.4-10.4); MONO % 11.4 % (1.7-9.3); PLATELET COUNT 106 K/mm3 (130-400); RED BLOOD COUNT 3.94 M/mm3 (4.20-5.60); REDCELL DISTRIBUTION WIDTH-CV 14.5 % (11.5-14.5)
[2023-08-29 10:39] LABS: CALCIUM 9.3 mg/dL (8.4-10.2); CREATININE, serum 6.67 mg/dL (0.72-1.25); POTASSIUM 4.1 mmol/L (3.5-4.5)
[2023-08-29] MEDS ORDERED: NORCO 325 MG-51 TAB PO (11:40)
[2023-08-29 12:25] VITALS: BP 151/61; PULSE 76; TEMP 97.4
[2023-08-29 12:40] VITALS: BP 154/67; PULSE 74
[2023-08-29 12:50] VITALS: BP 148/70; PULSE 72
--- NOTE | 2023-08-29 13:10 | NUR ---
1225 RETURNS TO ROOM 7 PER CART. AWAKE, ALERT. RESP UNLABORED. HOB ELEVATED 45 DEGREES. VITAL SIGNS OBTAINED. ABD SOFT. INCISIONS X 3 VISIBLE WITHOUT REDNESS OR DRAINAGE. DRESSING CATHETER SURGICAL SITE WITH SMALL AMOUNT OF RED DRAINAGE OBSERVED ON LOWER EDGE OF DRESSING. REPORTS MILD DISCOMFORT. CALL LIGHT AT SIDE. IN ROOM 1240 TOLERATES PO JUICE WITHOUT NAUSEA. DISCHARGE INSTRUCTIONS REVIEWED. COPY PROVIDED IN DISCHARGE FOLDER 9715 PATIENT SITS AT EDGE OF BED. DRESSES WITH MINIMAL ASSIST FROM . SMALL AMOUNT OF RED DRAINAGE LEAKING FROM BENEATH LOWER EDGE OF DRESSING. AREA REINFORCED WITH 4X4 STERILE GAUZE
[2023-08-29 18:00] VITALS: BP 148/78; PULSE 71; TEMP 97.6
== END 2023-08-29 13:31 | disposition home or self-care (01) ==
LOC: SDCO 09:02
PROVIDERS: Nurse Anesthetist, Certified Registered; Surgery
DX: N18.6 End stage renal disease (principal); D69.6 Thrombocytopenia, unspecified; F17.210 Nicotine dependence, cigarettes, uncomplicated
CPT/HCPCS: C1750; J0330; J0690; J1100; J2405; J2704; J3010; J7030

== ENCOUNTER 2023-08-29 20:28 | Emergency (ER) | payer MEDICARE, OTHER ==
[~2023-08-29] VITALS: Ht 177.8 cm; Wt 76.4 kg
[~2023-08-29 20:28] MED LIST changes: +FOLIC ACID 11 MG/TA1 PO
[2023-08-29 20:38] VITALS: TEMP 98.2
[2023-08-29 21:29] VITALS: BP 168/85; PULSE 78
== END 2023-08-29 22:06 | disposition home or self-care (01) ==
LOC: COL.ER 20:28
DX: T85.838A Hemorrhage due to other internal prosthetic devices, implants and grafts, initial encounter (principal); D69.6 Thrombocytopenia, unspecified; N18.6 End stage renal disease; D63.1 Anemia in chronic kidney disease; F17.210 Nicotine dependence, cigarettes, uncomplicated; Z99.2 Dependence on renal dialysis

== ENCOUNTER 2024-02-05 07:55 | Day surgery (SDC) | payer MEDICARE, OTHER ==
[~2024-02-05] VITALS: Ht 177.8 cm; Wt 82.1 kg
[2024-02-05 08:13] VITALS: BP 102/56; PULSE 76; TEMP 97.4
[2024-02-05] MEDS ORDERED: PLAVIX 75MG TAB75 MG (08:35)
[2024-02-05] MEDS ORDERED: REGLAN 5MG T5 MG/TAB (08:36)
[2024-02-05] MEDS ORDERED: NATURE'S BLEND100 M2 PO (08:36)
[2024-02-05] MEDS ORDERED: B-121000 MCG PO (08:36)
[2024-02-05] MEDS ORDERED: AURYXIA1 GM PO (08:38)
[2024-02-05] MEDS ORDERED: RT ALBUTER2.5 MG/0.5 IH (08:39)
[2024-02-05] MEDS ORDERED: ASPIRIN 81M81 MG/TA2 PO (08:39)
[2024-02-05] MEDS ORDERED: CELEXA10 MG (08:40)
[2024-02-05] MEDS ORDERED: BREZTRI AEROS10.7 GM IH (08:41)
--- NOTE | 2024-02-05 09:53 | NUR ---
Loop recorder inserted with no problem. Pt tolerated very well. Aftercare instructions reviewed with pt. Pt will be using bedside monitor. Pt and verbalized understanding of instructions related to setting up this monitor. Bedside report to Louann STEINER. Gauze dressing clean and dry at this time.
[2024-02-05 10:24] VITALS: BP 103/52; PULSE 67
--- NOTE | 2024-02-05 11:34 | NUR ---
PATIENT FINISHED WITH PROCEDURE. PATIENT TOLERATED WELL. GAUZE/PAPER TAPE TO LEFT UPPER CHEST, CDI. PATIENT DENIES ANY DISCOMFORT. VS OBTAINED AND DOCUMENTED. DISCHARGE INSTRUCTIONS PROVIDED. PATIENT EDUCATION GIVEN. PATIENT DRESSED AND ESCORTED OUT VIA WHEELCHAIR WITH .
== END 2024-02-05 11:58 ==
LOC: COL.CAR 07:55
DX: I63.9 Cerebral infarction, unspecified (principal); Z85.51 Personal history of malignant neoplasm of bladder; Z95.828 Presence of other vascular implants and grafts
CPT/HCPCS: C1764

== ENCOUNTER 2024-03-20 19:17 | Emergency (ER) | payer MEDICARE, OTHER ==
[~2024-03-20] VITALS: Ht 177.8 cm; Wt 72.7 kg
[~2024-03-20 19:17] MED LIST changes: +AURYXIA1 GM PO; +B-121000 MCG PO; +BREZTRI AEROS10.7 GM IH; +CELEXA10 MG; +NATURE'S BLEND100 M2 PO; +PLAVIX 75MG TAB75 MG; +REGLAN 5MG T5 MG/TAB; +RT ALBUTER2.5 MG/0.5 IH
[2024-03-20 19:30] VITALS: TEMP 98.4
[2024-03-20 21:21] LABS: HEMATOCRIT 40.3 % (42.0-52.0); MEAN CELL VOLUME 92 fl (80.0-100.0); MEAN CORPUSCULAR HEMOGLOBIN 30 pg (27-31); MEAN CORPUSCULAR HGB CONC 32 g/dl (33.0-37.0); MEAN PLATELET VOLUME 9.7 fl (7.4-10.4); PLATELET COUNT 166 K/mm3 (130-400); RED BLOOD COUNT 4.37 M/mm3 (4.20-5.60); REDCELL DISTRIBUTION WIDTH-CV 12.9 % (11.5-14.5)
[2024-03-20 21:34] LABS: BILIRUBIN,TOTAL 0.3 mg/dL (0.2-1.2); CALCIUM 8.9 mg/dL (8.4-10.2); CREATININE, serum 10.48 mg/dL (0.72-1.25); POTASSIUM 3.3 mEq/L (3.5-4.5); TOTAL PROTEIN 6.3 g/dl (6.2-8.1)
[2024-03-20 21:42] LABS: TROPONIN-I 0.159 ng/mL (0.00-0.033)
[2024-03-20 22:05] LABS: BAND 12 % (0-10); EOSINOPHIL 1 % (0-4); LYMPHOCYTE 5 % (20.0-51.0); METAMYELOCYTE 1 % (0-0); NEUTROPHILS 81 % (42.0-75.2); PLATELET ESTIMATE NORMAL (NORMAL)
[2024-03-20 23:15] VITALS: BP 121/65; PULSE 73
== END 2024-03-20 23:15 | disposition home or self-care (01) ==
LOC: COL.ER 19:17
PROVIDERS: Emergency Medicine
DX: R13.10 Dysphagia, unspecified (principal); N18.6 End stage renal disease; F17.210 Nicotine dependence, cigarettes, uncomplicated; Z99.2 Dependence on renal dialysis; Z79.02 Long term (current) use of antithrombotics/antiplatelets; Z87.09 Personal history of other diseases of the respiratory system